=== PATIENT | male | born 1960 | race Caucasian/White ===

== ENCOUNTER 2018-12-15 08:25 | Inpatient (IN) | payer OTHER ==
[2018-12-15] MEDS ORDERED: SODIUM CHLORIDE 0.9% 500 ML 500 ML IV STA (08:42)
[2018-12-15 08:45] LABS: Glucose,Whole Blood 94 mg/dL (75-99)
--- NOTE | 2018-12-15 08:51 | ED ---
Neuro HPI - General Chief Complaint: Neuro Symptoms/Deficit Stated Complaint: Slurred Speech, numbness Time Seen by Provider: 12/15/18 08:35 Source: patient, family, RN notes reviewed Mode of arrival: ambulatory Limitations: no limitations - History of Present Illness Is the patient presenting with stroke symptoms?: Yes Onset/Timin -: hour(s) Initial Comments: This a 58-year-old male presents emergency Department chief complaint of slurred speech, coordination. Patient states that he did not feel well on Tuesday states that he woke up states that he is dizzy no stiff some slurred speech. Patient states he felt there was just related to nasal congestion and states that he took some decongestant. Patient states that he's had symptoms similar to this in the past but he usually resolves after 24 hours. Patient states that he woke up again today still did not feel well states that he noticed when his brushing his teeth that he just felt that his hand eye correlation was not as good as usual. He states he feels symptoms in both upper extremities. Patient states he had some numbness but does not complain of symptoms at this time. He has no complaints of headache, blurred vision. Patient does not have a PCP and regular basis denies taking any prescription medications. Patient denies history of smoking. does state that his speech was off and stated this sounds more slurred. She has not other symptoms.Symptoms have started over 24 hours ago. - Related Data Home Medications: Home Medications Medication Instructions Recorded Confirmed Cetirizine HCl/Pseudoephedrine 1 tab PO Q12H PRN 12/15/18 12/15/18 [Zyrtec-D Tablet] Allergies/Adverse Reactions: Allergies Allergy/AdvReac Type Severity Reaction Status Date / Time No Known Allergies Allergy Verified 12/15/18 09:56 Review of Systems ROS Statement: Those systems with pertinent positive or pertinent negative responses have been documented in the HPI. ROS Other: All systems not noted in ROS Statement are negative. General Exam Limitations: no limitations General appearance: alert, in no apparent distress Head exam: Present: atraumatic, normocephalic, normal inspection Eye exam: Present: normal appearance, PERRL, EOMI. Absent: scleral icterus, conjunctival injection, periorbital swelling ENT exam: Present: normal exam, normal oropharynx, mucous membranes moist, TM's normal bilaterally, normal external ear exam Neck exam: Present: normal inspection, full ROM. Absent: tenderness, meningismus, lymphadenopathy Respiratory exam: Present: normal lung sounds bilaterally. Absent: respiratory distress, wheezes, rales, rhonchi, stridor Cardiovascular Exam: Present: regular rate, normal rhythm, normal heart sounds. Absent: systolic murmur, diastolic murmur, rubs, gallop, clicks GI/Abdominal exam: Present: soft, normal bowel sounds. Absent: distended, tenderness, guarding, rebound, rigid Extremities exam: Present: other (Upper and lower extremity strength equal bilaterally 5/5 neurovascular intact) Neurological exam: Present: alert, oriented X3, CN II-XII intact, reflexes normal. Absent: motor sensory deficit Expanded Patient oriented to: Present: person, place, time Speech: Present: fluid speech Cranial nerves: EOM's Intact: Normal, Gag Reflex: Normal, Tongue Deviation: Normal, Nystagmus: Normal, Facial Sensation: Normal Cerebellar function: Finger to Nose: Normal, Heel to Street: Normal, Romberg: Normal Upper motor neuron: Ramone Neglect: Normal Sensory exam: Upper Extremity Light Touch: Normal, Upper Extremity Pin Prick: Normal, UE 2 Point Discrimination: Normal, Lower Extremity Light Touch: Normal Motor strength exam: RUE: 5, LUE: 5, RLE: 5 Eye Response: (4) open spontaneously Motor Response: (6) obeys commands Verbal Response: (5) oriented [place] Total: 15 Skin exam: Present: warm, dry, intact, normal color. Absent: rash Stroke MDM - Lab Data Result diagrams: 12/15/18 08:45 12/15/18 08:45 Lab Results 12/15/18 12/15/18 12/15/18 Range/Units 08:43 08:45 08:45 WBC 5.5 (3.8-10.6) k/uL RBC 5.09 (4.30-5.90) m/uL Hgb 15.6 (13.0-17.5) gm/dL Hct 44.2 (39.0-53.0) % MCV 86.9 (80.0-100.0) fL MCH 30.7 (25.0-35.0) pg MCHC 35.3 (31.0-37.0) g/dL RDW 12.4 (11.5-15.5) % Plt Count 226 (150-450) k/uL Neutrophils % 54 % Lymphocytes % 34 % Monocytes % 7 % Eosinophils % 2 % Basophils % 0 % Neutrophils # 3.0 (1.3-7.7) k/uL Lymphocytes # 1.9 (1.0-4.8) k/uL Monocytes # 0.4 (0-1.0) k/uL Eosinophils # 0.1 (0-0.7) k/uL Basophils # 0.0 (0-0.2) k/uL PT (9.0-12.0) sec INR (<1.2) APTT (22.0-30.0) sec Sodium 141 (137-145) mmol/L Potassium 3.8 (3.5-5.1) mmol/L Chloride 105 (98-107) mmol/L Carbon Dioxide 28 (22-30) mmol/L Anion Gap 8 mmol/L BUN 15 (9-20) mg/dL Creatinine 0.89 (0.66-1.25) mg/dL Est GFR (CKD-EPI)AfAm >90 (>60 ml/min/1.73 sqM) Est GFR (CKD-EPI)NonAf >90 (>60 ml/min/1.73 sqM) Glucose 87 (74-99) mg/dL POC Glucose (mg/dL) 94 (75-99) mg/dL POC Glu Sound Editor ID Soy Man Calcium 9.6 (8.4-10.2) mg/dL Total Bilirubin 1.0 (0.2-1.3) mg/dL AST 22 (17-59) U/L ALT 28 (21-72) U/L Alkaline Phosphatase 64 (38-126) U/L Troponin I (0.000-0.034) ng/mL Total Protein 7.0 (6.3-8.2) g/dL Albumin 4.3 (3.5-5.0) g/dL 12/15/18 12/15/18 Range/Units 08:45 08:45 WBC (3.8-10.6) k/uL RBC (4.30-5.90) m/uL Hgb (13.0-17.5) gm/dL Hct (39.0-53.0) % MCV (80.0-100.0) fL MCH (25.0-35.0) pg MCHC (31.0-37.0) g/dL RDW (11.5-15.5) % Plt Count (150-450) k/uL Neutrophils % % Lymphocytes % % Monocytes % % Eosinophils % % Basophils % % Neutrophils # (1.3-7.7) k/uL Lymphocytes # (1.0-4.8) k/uL Monocytes # (0-1.0) k/uL Eosinophils # (0-0.7) k/uL Basophils # (0-0.2) k/uL PT 10.2 (9.0-12.0) sec INR 0.9 (<1.2) APTT 25.2 (22.0-30.0) sec Sodium (137-145) mmol/L Potassium (3.5-5.1) mmol/L Chloride (98-107) mmol/L Carbon Dioxide (22-30) mmol/L Anion Gap mmol/L BUN (9-20) mg/dL Creatinine (0.66-1.25) mg/dL Est GFR (CKD-EPI)AfAm (>60 ml/min/1.73 sqM) Est GFR (CKD-EPI)NonAf (>60 ml/min/1.73 sqM) Glucose (74-99) mg/dL POC Glucose (mg/dL) (75-99) mg/dL POC Glu Sound Editor ID Calcium (8.4-10.2) mg/dL Total Bilirubin (0.2-1.3) mg/dL AST (17-59) U/L ALT (21-72) U/L Alkaline Phosphatase (38-126) U/L Troponin I <0.012 (0.000-0.034) ng/mL Total Protein (6.3-8.2) g/dL Albumin (3.5-5.0) g/dL - Medical Decision Making CT shows evidence of intermediate left basilar ganglia infarct. Patient does have some right-sided symptoms. Patient case discussed with admitting physician and will be consulted neurology, MRI. - EKG Data -: EKG Interpreted by Me 12/15/18 10:13 EKG performed at 8:40, no sinus rhythm rate of 75 CO 170 QS 102 QT status QTC 3 successful 31 normal axis normal intervals, no ST elevation or depression. Past Medical History Past Medical History: No Reported History History of Any Multi-Drug Resistant Organisms: None Reported Past Surgical History: Appendectomy Additional Past Surgical History / Comment(s): as child Past Anesthesia/Blood Transfusion Reactions: No Reported Reaction, Motion Sickness Additional Past Anesthesia/Blood Transfusion Reaction / Comment(s): adopted Past Psychological History: No Psychological Hx Reported Smoking Status: Never smoker Past Alcohol Use History: Occasional Past Drug Use History: None Reported - Past Family History Mother Family Medical History: Unable to Obtain Additional Family Medical History / Comment(s): adopted Course Vital Signs 12/15/18 08:27 Temperature 97.8 F Pulse Rate 83 Respiratory 16 Rate Blood Pressure 121/92 O2 Sat by Pulse 98 Oximetry Disposition Clinical Impression: Cerebrovascular accident (CVA) Disposition: ADMITTED IP TO THIS HOSP Condition: Fair Referrals: Richard Glover DO [Primary Care Provider] - 1-2 days
[2018-12-15 09:08] LABS: ALT 28 U/L (21-72); AST 22 U/L (17-59); African American GFR (CKD) >90 (>60 ml/min/1.73 sqM); Albumin 4.3 g/dL (3.5-5.0); Alkaline Phosphatase 64 U/L (38-126); Anion Gap 8 mmol/L; Basophils % (A) 0 %; Blood Urea Nitrogen 15 mg/dL (9-20); Calcium 9.6 mg/dL (8.4-10.2); Carbon Dioxide 28 mmol/L (22-30); Chloride 105 mmol/L (98-107); Eosinophils # (A) 0.1 k/uL (0-0.7); Eosinophils % (A) 2 %; Glucose 87 mg/dL (74-99); HCT 44.2 % (39.0-53.0); HGB 15.6 gm/dL (13.0-17.5); Lymphocytes # (A) 1.9 k/uL (1.0-4.8); Lymphocytes % (A) 34 %; MCH 30.7 pg (25.0-35.0); MCHC 35.3 g/dL (31.0-37.0); MCV 86.9 fL (80.0-100.0); Mean Platelet Volume 5.8; Monocytes # (A) 0.4 k/uL (0-1.0); Monocytes % (A) 7 %; Neutrophils % (A) 54 %; Platelet Count 226 k/uL (150-450); Potassium 3.8 mmol/L (3.5-5.1); RBC 5.09 m/uL (4.30-5.90); RDW 12.4 % (11.5-15.5); Sodium 141 mmol/L (137-145); WBC 5.5 k/uL (3.8-10.6)
[2018-12-15 09:09] LABS: INR 0.9 (<1.2); Partial Thromboplastin Time 25.2 sec (22.0-30.0); Prothrombin Time 10.2 sec (9.0-12.0)
--- NOTE | 2018-12-15 10:06 | CT ---
EXAMINATION TYPE: CT brain wo con DATE OF EXAM: 12/15/2018 COMPARISON: None INDICATION: Slurred speech DLP: 1090.8 mGycm, Automated exposure control for dose reduction was used. CONTRAST: None CT of the brain is performed utilizing 3 mm thick sections through the posterior fossa and 3 mm thick sections through the remaining calvarium. Study is performed within 24 hours of arrival to the hosp ital. No abnormal hyperdensity is present to suggest an acute intracranial hemorrhage. No mass lesion is evident. No acute infarcts are evident. There are patchy periventricular white matter hypodensities, likely on the basis of chronic white matter ischemic change. Lacunar infarct within the left basal ganglion ma y be present. This could be some additional microvascular ischemic change which could be chronic. Ventricles and sulci are appropriate for the patient age. Paranasal sinuses and mastoid air cells within the [id number] are clear. IMPRESSIONS: 1. Patchy periventricular white matter hypodensity, likely on the basis of chronic white matter isc hemic changes. 2. Coronary infarct within the left basal ganglion is not excluded. This could be chronic or indeterm inant age.
--- NOTE | 2018-12-15 10:13 | CT ---
EXAMINATION TYPE: CT angio head neck DATE OF EXAM: 12/15/2018 HISTORY: Slurred speech COMPARISON: None CT DLP: 495.1 mGycm. Automated Exposure Control for Dose Reduction was Utilized. TECHNIQUE: CTA scan of the neck is performed with IV Contrast, patient injected with 65 mL of Isovue 370, axial images are obtained, coronal and sagittal reformatted images are reviewed. Three-D recons tructed images are created on an independent workstation and reviewed. Source images are reviewed. FINDINGS: Carotid/Vascular Structures: There is some beam hardening artifact at the thoracic inlet. The visuali zed common carotid arteries appear symmetrical. Vertebral arteries are codominant. Carotid artery bif urcations appear normal. Internal carotid arteries extend to the skull base. Cervical of [place]: Vertebral basilar system appears normal. Posterior cerebral vasculature is unrema rkable. Left internal carotid artery via patent A1 and M1 segments. A2 segments are normal. The anter ior communicating artery is patent. 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 Left Post erior communicating artery is patent. Right posterior communicating artery is patent. IMPRESSION: 1. No flow-limiting stenosis bilateral carotid bifurcations. 2. Congenital absence right A1 segment. [place] appears within normal limits.
--- NOTE | 2018-12-15 10:14 | XR ---
EXAMINATION TYPE: XR chest 2V DATE OF EXAM: 12/15/2018 COMPARISON: NONE TECHNIQUE: PA and lateral views submitted. HISTORY: Altered mental status FINDINGS: The lungs are clear and there is no pneumothorax, pleural effusion, or focal pneumonia. Hyperinflat ion noted. No overt failure. IMPRESSION: 1. No acute process.
[2018-12-15] MEDS ORDERED: ASPIRIN 325 MG TAB PO STA (10:34)
--- NOTE | 2018-12-15 12:25 | P.CNNES ---
History of Present Illness Consult date: 12/15/18 Reason for Consult: Concern for stroke Chief complaint: Slurred speech and hand incoordination History of Present Illness: hisHISTORY OF PRESENT ILLNESS: Thank you for allowing me to evaluate Mr. Cedrick Becker. Mr. Becker is a 58 year-old R-handed man with PMHx of sinus disease only who presents with acute onset slurred speech along with difficulties with hand coordination. Patient states that yesterday morning, he woke off and packed lunch for work, but patient decided to stay home because he was not feeling well. This morning, when he still has a slurred speech, he decided to come to the hospital. Patient states that when he tried to brush his teeth, and just didn't feel right and for that reason, patient thinks that he was having some coordination issues. Patient states that he has never had similar symptoms before. He sometimes has dizziness that goes away after taking Zyrtec, and his previous doctors have told him that maybe he has vertigo. Patient has a separate episodes maybe once a year during seasonal changes. Patient denies any recent sickness, fever, headache, double/blurry vision, weakness, numbness or tingling. PAST MEDICAL HISTORY: Sinus disease PAST SURGICAL HISTORY: Appendectomy HOME MEDICATIONS: Zyrtec ALLERGIES: NKDA SOCIAL HISTORY: Never smoker, Denies any EtOH/drug abuse history. Works as an electrician chief FAMILY HISTORY: Patient is adopted REVIEW OF SYSTEMS: The 14 systems are reviewed and no additional points are identified compared to the review of systems documented history and physical PHYSICAL EXAMINATION: VITAL SIGNS: T 97.8 HR 83 RR 18 BP 121/92 O2 sat 98% GEN.: NAD, pleasant and cooperative HEENT: NCAT, sclera without icterus NECK: Supple SKIN AND EXTREMITIES: Warm to touch, no edema NEURO: MENTAL STATUS: Patient alert and oriented to self, place, time. Able to name the current president. Speech fluent but with mild dysarthria, able to name and repeat, following all commands readily. No right and left disorientation, neglect. CRANIAL NERVES II THROUGH XII: II: Pupils are equal and reactive to light symmetrically. No afferent pupillary defect. Visual gibson are intact. III, IV, : No ptosis. Extraocular movements full. No nystagmus. V: Facial sensation intact from V1-3. VII. No clear facial asymmetry. VIII: Hearing intact to finger rub bilaterally. IX, X: Symmetric palate elevation. XI: Shoulder shrug intact. XII: Tongue midline without fasciculation or atrophy. MOTOR: Normal bulk/tone. No pronator drift or tremor. Strength is 5/5 throughout all 4 extremities. SENSORY: Intact to light touch in all 4 extremities. Romberg is negative. REFLEXES: 2+ throughout. Toes are downgoing. No clonus. Caren's is absent COORDINATION: Finger to nose and heel to [place] intact. No dysmetria. Rapid alternating movements with okay speed and accuracy. GAIT: Narrow-based and stable. Able to toe/heel/tandem walk DIAGNOSTIC TESTING: LABORATORY: WBC 5.5 hemoglobin 15.6 platelet 226 PT 10.2 INR 0.9 sodium 141 potassium 3.8 chloride 105 bicarb 28 BUN 15. In 0.89 glucose 87 AST 22 ALT 28 alk phos 64 troponin <0.012 IMAGING: CT head without contrast 12/15/2018: Patchy periventricular white matter hypodensity, likely on the basis of chronic white matter ischemic changes. Infarct within the left basal ganglia is not excluded. This could be chronic or indeterminate age CTA head and neck with contrast 12/15/2018: No flow-limiting stenosis bilateral carotid bifurcations. Congenital absence of right A1 segment. [place] appears within normal limits ASSESSMENT: 58 year-old R-handed man with PMHx of sinus disease only who presents with acute onset slurred speech along with difficulties with hand coordination. On exam, patient with mild slurred speech along with L nasolabial fold flattening. Patient at this time with no risk factors for stroke. CT Head showing diffuse chronic white matter ischemic changes with possibility of old L basal ganglia stroke. Recommend stroke work-up and management. RECOMMENDATIONS: 1. MRI brain without contrast 2. Transthoracic echocardiogram. Will consider [place] if TTE unremarkable 3. Cardiac monitoring 4. Permissive HTN for 24 hours SBP >220. Give labetalol 10mg IV q1h PRN for SBP >220 DBP >110 5. ASA 81mg qday and Plavix 75mg qday (dual antiplatelet therapy for 3 weeks per POINT trial, then Aspirin 81mg qday only) 6. Atorvastatin 80mg qhs 7. Labs: A1C, TSH, FLP 8. PT/OT/ST per protocol 9. Discussed with patient about stroke prevention guidelines. Medication compliance, hypertension/diabetes control, lifestyle changes including no sm oking, drinking in moderation, losing weight, exercising, eating healthier 10. Neurology is not available over the weekend in-house. However, feel free to Perfect[employer] message me over the weekend if you have any questions or concerns 11. Patient needs to follow up with neurologist as outpatient with her 1-2 weeks of discharge Past Medical History Past Medical History: Osteoarthritis (OA) Additional Past Medical History / Comment(s): Patient states in the past few months, he has had episodes of vertigo/nausea and possible slight slurring of speech once before, arthritis bilateral knees, sinus issues. History of Any Multi-Drug Resistant Organisms: None Reported Past Surgical History: Tonsillectomy Additional Past Surgical History / Comment(s): Colonoscopy-normal Past Anesthesia/Blood Transfusion Reactions: No Reported Reaction, Motion Sickness Additional Past Anesthesia/Blood Transfusion Reaction / Comment(s): adopted Smoking Status: Never smoker - Past Family History Mother Family Medical History: Unable to Obtain Additional Family Medical History / Comment(s): adopted Father Family Medical History: Unable to Obtain Additional Family Medical History / Comment(s): adopted Medications and Allergies Home Medications Medication Instructions Recorded Confirmed Type Cetirizine HCl/Pseudoephedrine 1 tab PO Q12H PRN 12/15/18 12/15/18 History [Zyrtec-D Tablet] Allergies Allergy/AdvReac Type Severity Reaction Status Date / Time No Known Allergies Allergy Verified 12/15/18 09:56 Physical Examination - Vital Signs Vital Signs: Vital Signs Temp Pulse Resp BP Pulse Ox 12/15/18 10:30 72 14 123/85 94 L 12/15/18 10:00 70 15 112/87 95 12/15/18 09:30 78 22 116/84 94 L 12/15/18 09:00 126/90 12/15/18 08:39 81 17 97 12/15/18 08:27 97.8 F 83 16 121/92 98 Intake and Output 12/14/18 12/15/18 12/15/18 22:59 06:59 14:59 Other: Weight 92.986 kg Results - Laboratory Findings CBC and BMP: 12/15/18 08:45 12/15/18 08:45
--- NOTE | 2018-12-15 15:10 | MR ---
EXAMINATION TYPE: MR brain wo con DATE OF EXAM: 12/15/2018 COMPARISON: CT brain 12/15/2018 HISTORY: Slurred speech, jm arm weakness CONTRAST: Performed utilizing 0 mL intravenous Gadavist gadolinium contrast. TECHNIQUE: Multiplanar, multiecho imaging on a 3.0 Laura magnet is performed through the brain. Stud y is performed within 24 hours of arrival to the hospital. The craniovertebral junction is normal. The pituitary is normal. Diffusion-weighted imaging is performed. There is a solitary small focal hyperintensity within the m edial aspect right brain stem just posterior to the intrapeduncular cistern. Series 305 image 96. No additional abnormal signal areas are evident on diffusion weighted imaging including the left basa l ganglia. There is fairly extensive periventricular white matter changes which are likely chronic is chemic changes. Scattered small subcortical white matter changes are evident. Normal vascular flow voids are within the visualized intracranial cerebral vasculature. On these imag es a very small hypoplastic right A1 segment may be present. Ventricles and sulci are mildly prominent compatible with some age-related atrophy. IMPRESSIONS: 1. Small acute medial right brain stem ischemic change. 2. Fairly extensive chronic appearing white matter and subcortical white matter ischemic type changes . 3. Mild age related atrophy
--- NOTE | 2018-12-15 16:28 | P.HPIM ---
History of Present Illness H&P Date: 12/15/18 Chief Complaint: Slurred Speech, numbness 58-year-old male presents emergency Department chief complaint of slurred speech, coordination. Patient states that he did not feel well on Tuesday states that he woke up states that he is dizzy no stiff some slurred speech. Patient states he felt there was just related to nasal congestion and states that he took some decongestant. Patient states that he's had symptoms similar to this in the past but he usually resolves after 24 hours. Patient states that he woke up again today still did not feel well states that he noticed when his brushing his teeth that he just felt that his hand eye correlation was not as good as usual. He states he feels symptoms in both upper extremities. Patient states he had some numbness but does not complain of symptoms at this time. He has no complaints of headache, blurred vision. Patient does not have a PCP and regular basis denies taking any prescription medications. Patient denies history of smoking. does state that his speech was off and stated this sounds more slurred. She has not other symptoms.Symptoms have started over 24 hours ago. Review of Systems REVIEW OF SYSTEMS: CONSTITUTIONAL: No fever, no malaise, no fatigue. HEENT: No recent visual problems or hearing problems. Denied any sore throat. CARDIOVASCULAR: No chest pain, orthopnea, PND, no palpitations, no syncope. PULMONARY: No shortness of breath, no cough, no hemoptysis. GASTROINTESTINAL: No diarrhea, no nausea, no vomiting, no abdominal pain. NEUROLOGICAL: No headaches, no weakness, no numbness. HEMATOLOGICAL: Denies any bleeding or petechiae. GENITOURINARY: Denies any burning micturition, frequency, or urgency. MUSCULOSKELETAL/RHEUMATOLOGICAL: Denies any joint pain, swelling, or any muscle pain. ENDOCRINE: Denies any polyuria or polydipsia. The rest of the 14-point review of systems is negative. Past Medical History Past Medical History: Osteoarthritis (OA) Additional Past Medical History / Comment(s): Patient states in the past few months, he has had episodes of vertigo/nausea and possible slight slurring of sp eech once before, arthritis bilateral knees, sinus issues. History of Any Multi-Drug Resistant Organisms: None Reported Past Surgical History: Tonsillectomy Additional Past Surgical History / Comment(s): Colonoscopy-normal Past Anesthesia/Blood Transfusion Reactions: No Reported Reaction, Motion Sic kness Additional Past Anesthesia/Blood Transfusion Reaction / Comment(s): adopted Smoking Status: Never smoker - Past Family History Mother Family Medical History: Unable to Obtain Additional Family Medical History / Comment(s): adopted Father Family Medical History: Unable to Obtain Additional Family Medical History / Comment(s): adopted Medications and Allergies Home Medications Medication Instructions Recorded Confirmed Type Cetirizine HCl/Pseudoephedrine 1 tab PO Q12H PRN 12/15/18 12/15/18 History [Zyrtec-D Tablet] Allergies Allergy/AdvReac Type Severity Reaction Status Date / Time No Known Allergies Allergy Verified 12/15/18 09:56 Physical Exam Vitals: Vital Signs Temp Pulse Resp BP Pulse Ox 12/15/18 12:00 135/100 12/15/18 11:30 74 10 L 113/89 95 12/15/18 11:00 71 16 119/85 97 12/15/18 10:30 72 14 123/85 94 L 12/15/18 10:00 70 15 112/87 95 12/15/18 09:30 78 22 116/84 94 L 12/15/18 09:00 126/90 12/15/18 08:39 81 17 97 12/15/18 08:27 97.8 F 83 16 121/92 98 Intake and Output 12/14/18 12/15/18 12/15/18 22:59 06:59 14:59 Other: Weight 92.986 kg General appearance: alert, in no apparent distress Head exam: Present: atraumatic, normocephalic, normal inspection Eye exam: Present: normal appearance, PERRL, EOMI. Absent: scleral icterus, conjunctival injection, periorbital swelling ENT exam: Present: normal exam, normal oropharynx, mucous membranes moist, TM's normal bilaterally, normal external ear exam Neck exam: Present: normal inspection, full ROM. Absent: tenderness, meningismus, lymphadenopathy Respiratory exam: Present: normal lung sounds bilaterally. Absent: respiratory distress, wheezes, rales, rhonchi, stridor Cardiovascular Exam: Present: regular rate, normal rhythm, normal heart sounds. Absent: systolic murmur, diastolic murmur, rubs, gallop, clicks GI/Abdominal exam: Present: soft, normal bowel sounds. Absent: distended, tenderness, guarding, rebound, rigid Extremities exam: Present: other (Upper and lower extremity strength equal bilaterally 5/5 neurovascular intact) Neurological exam: Present: alert, oriented X3, CN II-XII intact, reflexes normal. Absent: motor sensory deficit Expanded Patient oriented to: Present: person, place, time Speech: Present: fluid speech Cranial nerves: EOM's Intact: Normal, Gag Reflex: Normal, Tongue Deviation: Normal, Nystagmus: Normal, Facial Sensation: Normal Sensory exam: Upper Extremity Light Touch: Normal, Upper Extremity Pin Prick: Normal, UE 2 Point Discrimination: Normal, Lower Extremity Light Touch: Normal Davin Total: 15 Skin exam: Present: warm, dry, intact, normal color. Absent: rash Results CBC & Chem 7: 12/15/18 08:45 12/15/18 08:45 Thrombosis Risk Factor Assmnt - Choose All That Apply Any of the Below Risk Factors Present?: Yes Each Factor Represents 1 point: Age 41-60 years, Obesity (BMI >25) Other Risk Factors: Yes Other congenital or acquired thrombophilia - If yes, enter type in comment: No Each Risk Factor Represents 5 Points: Stroke (< 1 month) Thrombosis Risk Factor Assessment Total Risk Factor Score: 7 Thrombosis Risk Factor Assessment Level: High Risk Assessment and Plan Assessment: 1. Acute onset slurred speech/difficulty with hand coordination - Patient does have mild slurring of speech along with left nasal labial for flattening; CT of the head done in ED showed diffuse chronic white matter ischemic changes with possibility of old left basal ganglia infarct; neurology is following and recommending to proceed with MRI of the brain without contrast, transthoracic echo echocardiogram with possibility of proceeding with FLORENCE if transthoracic echo is unremarkable; patient will be placed on telemetry with permissive hypertension for 24 hours keeping SBP greater than 220 and DBP greater than 110; patient will be given labetalol 10 mg IV every hour when necessary - Continue with aspirin 81 mg daily and Plavix 75 mg daily - High intensity statin therapy with or atorvastatin 80 mg daily at bedtime - consult PT/OT/CHILDRENS CLUB ATTENDANT 2. Uncontrolled hypertension; permissive hypertension for next 24-48 hours as indicated above 3. DVT prophylaxis; SCDs CODE STATUS; full code Time with Patient: Greater than 30
[2018-12-15 19:42] LABS: Hemoglobin A1C 5.2 % (4.0-6.0)
--- NOTE | 2018-12-15 19:50 | ECHOF ---
Referral Reason:Concern for stroke MEASUREMENTS -------- HEIGHT: 185.4 cm WEIGHT: 93.0 kg BP: 135/100 RVIDd: 2.8 cm (< 3.3) IVSd: 1.0 cm (0.6 - 1.1) LVIDd: 3.7 cm (3.9 - 5.3) LVPWd: 1.0 cm (0.6 - 1.1) IVSs: 1.4 cm LVIDs: 2.6 cm LVPWs: 1.5 cm LA Diam: 3.0 cm (2.7 - 3.8) LAESV Index (A-L): 20.22 ml/m Ao Diam: 4.4 cm (2.0 - 3.7) AV Cusp: 2.5 cm (1.5 - 2.6) MV EXCURSION: 21.432 mm (> 18.000) MV EF SLOPE: 102 mm/s (70 - 150) EPSS: 0.5 cm MV E Duy: 0.47 m/s MV DecT: 285 ms MV A Duy: 0.55 m/s MV E/A Ratio: 0.85 TAPSE: 21.76 mm FINDINGS -------- Sinus rhythm. This was a technically good study. The left ventricular size is normal. Left ventricular wall thickness is normal. Overall left vent ricular systolic function is normal with, an EF between 60 - 65 %. The diastolic filling pattern is normal for the age of the patient 10.49. The right ventricle is normal in size. Normal LA size by volume 22+/-6 ml/m2. The right atrium is normal in size. Interatrial and interventricular septum intact. The aortic valve is trileaflet and appears structurally normal. There is trace to mild mitral regurgitation. The tricuspid valve appears structurally normal. Trace/mild (physiologic) pulmonic regurgitation. The aortic root is dilated measuring 4.4cm. Normal inferior vena cava with normal inspiratory collapse consistent with estimated right atrial pre ssure of 5 mmHg. There is no pericardial effusion. CONCLUSIONS -------- 1. Sinus rhythm. 2. This was a technically good study. 3. The left ventricular size is normal. 4. Left ventricular wall thickness is normal. 5. Overall left ventricular systolic function is normal with, an EF between 60 - 65 %. 6. The diastolic filling pattern is normal for the age of the patient 10.49 7. The right ventricle is normal in size. 8. Normal LA size by volume 22+/-6 ml/m2. 9. The right atrium is normal in size. 10. Interatrial and interventricular septum intact. 11. The aortic valve is trileaflet and appears structurally normal. 12. There is trace to mild mitral regurgitation. 13. The tricuspid valve appears structurally normal. 14. Trace/mild (physiologic) pulmonic regurgitation. 15. The aortic root is dilated measuring 4.4cm. 16. Normal inferior vena cava with normal inspiratory collapse consistent with estimated right atrial pressure of 5 mmHg. 17. There is no pericardial effusion. PROCESSING MGR: Mana Sharp RDCS
[2018-12-15] MEDS: HEPARIN SODIUM,PORCINE 5,000 UNIT/ML 1 ML VIAL SQ SCH (21:46)
[2018-12-15] MEDS: ATORVASTATIN 40 MG TAB PO SCH (21:46)
[2018-12-16 06:33] LABS: Basophils % (A) 0 %; Eosinophils # (A) 0.1 k/uL (0-0.7); Eosinophils % (A) 2 %; HCT 44.7 % (39.0-53.0); HGB 14.9 gm/dL (13.0-17.5); Lymphocytes % (A) 35 %; MCH 29.3 pg (25.0-35.0); MCHC 33.3 g/dL (31.0-37.0); Mean Platelet Volume 6.6; Monocytes # (A) 0.3 k/uL (0-1.0); Monocytes % (A) 5 %; Neutrophils # (A) 3.2 k/uL (1.3-7.7); Neutrophils % (A) 55 %; Platelet Count 227 k/uL (150-450); RBC 5.08 m/uL (4.30-5.90); RDW 12.7 % (11.5-15.5); WBC 5.8 k/uL (3.8-10.6)
[2018-12-16 06:48] LABS: African American GFR (CKD) >90 (>60 ml/min/1.73 sqM); Anion Gap 7 mmol/L; Blood Urea Nitrogen 18 mg/dL (9-20); Calcium 9.4 mg/dL (8.4-10.2); Carbon Dioxide 26 mmol/L (22-30); Chloride 106 mmol/L (98-107); Cholesterol 175 mg/dL (<200); Glucose 89 mg/dL (74-99); HDL Cholesterol 51 mg/dL (40-60); LDL Cholesterol,Calculated 111 mg/dL (0-99); Potassium 4.1 mmol/L (3.5-5.1); Sodium 139 mmol/L (137-145); Triglycerides 65 mg/dL (<150)
[2018-12-16] MEDS: HEPARIN SODIUM,PORCINE 5,000 UNIT/ML 1 ML VIAL SQ SCH ×2 (09:13→21:25)
[2018-12-16] MEDS: CLOPIDOGREL 75 MG TAB PO SCH (09:13)
--- NOTE | 2018-12-16 10:25 | P.PN ---
Progress Note - Text Progress Note Date: 12/16/18 Brief Note: I did not see the patient today. Reviewed results of TTE, MRI brain and labs. MRI brain showing a lacunar infarct in R emmanuel/brainstem junction, which explains patient's L facial droop. MRI brain also showing significant periventricular white matter changes, which could be chronic microvascular changes. There is no evident risk factor for this patient's finding of a stroke. Recommend FLORENCE during this admission and continuation of cardiac monitoring as outpatient. Neurology is not available over the weekend in-house. However, feel free to [employer] message me over the weekend if you have any questions or concerns
[2018-12-16] MEDS ORDERED: ASPIRIN 325 MG TAB PO SCH (10:35)
--- NOTE | 2018-12-16 13:07 | P.PN ---
Subjective Progress Note Date: 12/16/18 Principal diagnosis: Acute CVA; lacunar infarct right emmanuel/brainstem junction 58-year-old male presents emergency Department chief complaint of slurred speech, coordination. Patient states that he did not feel well on Tuesday states that he woke up states that he is dizzy no stiff some slurred speech. Patient states he felt there was just related to nasal congestion and states that he took some decongestant. Patient states that he's had symptoms similar to this in the past but he usually resolves after 24 hours. Patient states that he woke up again today still did not feel well states that he noticed when his brushing his teeth that he just felt that his hand eye correlation was not as good as usual. He states he feels symptoms in both upper extremities. Patient states he had some numbness but does not complain of symptoms at this time. He has no complaints of headache, blurred vision. Patient does not have a PCP and regular basis denies taking any prescription medications. Patient denies history of smoking. does state that his speech was off and stated this sounds more slurred. 12/16/2018 Patient is seen and evaluated in room with at bedside; patient denies any specific complaints Vital signs remained stable with a temperature of 97.9, pulse 81, estrogen 16 and blood pressure 105/66 with SpO2 of 96% Labs are reviewed with essentially normal CBC and chemical profile, A1c is 5.2 with total cholesterol of 175 and LDL of 111; TSH is 1.75 Patient remains on high-intensity statin therapy along with aspirin and Plavix; MRI is positive for lack noted infarct in the right emmanuel/brainstem junction; neurology is following and is recommending a FLORENCE in effort to find etiology of stroke; this was discussed with patient and and they're agreeable Objective - Vital Signs Vital signs: Vital Signs Temp 97.9 F 12/16/18 04:00 Pulse 81 12/16/18 04:00 Resp 16 12/16/18 04:00 BP 105/66 12/16/18 04:00 Pulse Ox 96 12/16/18 04:00 Intake & Output 12/15/18 12/16/18 12/16/18 18:59 06:59 18:59 Intake Total 240 540 360 Balance 240 540 360 Weight 92.986 kg 92.7 kg Intake: Oral 240 540 360 Other: Voiding Method Toilet # Voids 1 2 - Exam - Constitutional General appearance: Present: average body habitus, cooperative, no acute distress - EENT Eyes: Present: anicteric sclerae, EOMI, PERRLA, normal appearance ENT: Present: hearing grossly normal, normal oropharynx Ears: bilateral: normal - Neck Neck: Present: normal ROM. Absent: lymphadenopathy, rigidity, thyromegaly Carotids: negative: bruit present Thyroid: bilateral: normal size, negative: enlarged, nodule - Respiratory Respiratory: bilateral: CTA, negative: rales, rhonchi, wheezing - Cardiovascular Rhythm: regular Heart sounds: normal: S1, S2 Abnormal Heart Sounds: Absent: systolic murmur, diastolic murmur - Gastrointestinal General gastrointestinal: Present: normal bowel sounds, soft. Absent: distended, organomegaly, tenderness - Genitourinary Genitourinary Comment(s): deferred - Integumentary Integumentary: Present: normal turgor. Absent: jaundiced, rash, ulcer - Neurologic Neurologic: Present: CNII-XII intact. Absent: focal deficits - Musculoskeletal Musculoskeletal: Present: gait normal, strength equal bilaterally - Psychiatric Psychiatric: Present: A&O x's 3, appropriate affect, intact judgment & insight - Labs CBC & Chem 7: 12/16/18 05:48 12/16/18 05:48 Labs: Abnormal Lab Results - Last 24 Hours (Table) 12/16/18 Range/Units 05:48 LDL Cholesterol, Calc 111 H (0-99) mg/dL Assessment and Plan Assessment: 1. Acute onset slurred speech/difficulty with hand coordination - Patient does have mild slurring of speech along with left nasal labial for flattening; CT of the head done in ED showed diffuse chronic white matter ischemic changes with possibility of old left basal ganglia infarct; neurology is following and recommending to proceed with MRI of the brain without contrast, transthoracic echo echocardiogram with possibility of proceeding with FLORENCE if transthoracic echo is unremarkable; patient will be placed on telemetry with permissive hypertension for 24 hours keeping SBP greater than [address] than 110; patient will be given labetalol 10 mg IV every hour when necessary - Continue with aspirin 81 mg daily and Plavix 75 mg daily - High intensity statin therapy with or atorvastatin 80 mg daily at bedtime - consult PT/OT/KITCHEN WORK SUPERVISOR 2. Uncontrolled hypertension; permissive hypertension for next 24-48 hours as indicated above 3. DVT prophylaxis; SCDs CODE STATUS; full code Time with Patient: Greater than 30
[2018-12-16] MEDS: ATORVASTATIN 40 MG TAB PO SCH (21:25)
[2018-12-17 07:26] LABS: Calcium 9.6 mg/dL (8.4-10.2); Potassium 4.3 mmol/L (3.5-5.1)
[2018-12-17] MEDS: HEPARIN SODIUM,PORCINE 5,000 UNIT/ML 1 ML VIAL SQ SCH ×2 (09:14→20:15)
[2018-12-17] MEDS: ASPIRIN 81 MG PO SCH (09:14)
[2018-12-17] MEDS: CLOPIDOGREL 75 MG TAB PO SCH (09:14)
--- NOTE | 2018-12-17 15:57 | P.PN ---
Subjective Progress Note Date: 12/17/18 Principal diagnosis: Acute CVA; lacunar infarct right emmanuel/brainstem junction 58-year-old male presents emergency Department chief complaint of slurred speech, coordination. Patient states that he did not feel well on Tuesday states that he woke up states that he is dizzy no stiff some slurred speech. Patient states he felt there was just related to nasal congestion and states that he took some decongestant. Patient states that he's had symptoms similar to this in the past but he usually resolves after 24 hours. Patient states that he woke up again today still did not feel well states that he noticed when his brushing his teeth that he just felt that his hand eye correlation was not as good as usual. He states he feels symptoms in both upper extremities. Patient states he had some numbness but does not complain of symptoms at this time. He has no complaints of headache, blurred vision. Patient does not have a PCP and regular basis denies taking any prescription medications. Patient denies history of smoking. does state that his speech was off and stated this sounds more slurred. 12/16/2018 Patient is seen and evaluated in room with at bedside; patient denies any specific complaints Vital signs remained stable with a temperature of 97.9, pulse 81, estrogen 16 and blood pressure 105/66 with SpO2 of 96% Labs are reviewed with essentially normal CBC and chemical profile, A1c is 5.2 with total cholesterol of 175 and LDL of 111; TSH is 1.75 Patient remains on high-intensity statin therapy along with aspirin and Plavix; MRI is positive for lack noted infarct in the right emmanuel/brainstem junction; neurology is following and is recommending a FLORENCE in effort to find etiology of stroke; this was discussed with patient and and they're agreeable 12/17/2018 Patient is seen and evaluated with at bedside; patient and family are concerned about possible need for evaluation of carotids; I did go over results of CTA head and neck which are unremarkable Vital signs with a temperature of 97.6, pulse 83, respiration 14 and blood pressure 113/65 Labs remained stable with sodium of 139, potassium 4.3; BUN has escalated up to 23 with creatinine of 1.16; patient encouraged to increase fluid intake Patient remains on aspirin, Plavix and high-intensity statin therapy in form of Lipitor 40 mg by mouth daily at bedtime; MRI is positive for infarct and right emmanuel/brainstem junction Neurology is following and FLORENCE is recommended; scheduled for tomorrow morning Objective - Vital Signs Vital signs: Vital Signs Temp 97.6 F 12/17/18 08:00 Pulse 83 12/17/18 08:00 Resp 14 12/17/18 08:00 BP 113/65 12/17/18 08:00 Pulse Ox 94 L 12/17/18 08:00 Intake & Output 12/16/18 12/17/18 12/17/18 19:59 06:59 18:59 Intake Total 360 Balance 360 Weight Intake: Oral 360 Other: Voiding Method Toilet # Voids 1 - Exam - Constitutional General appearance: Present: average body habitus, cooperative, no acute distress - EENT Eyes: Present: anicteric sclerae, EOMI, PERRLA, normal appearance ENT: Present: hearing grossly normal, normal oropharynx Ears: bilateral: normal - Neck Neck: Present: normal ROM. Absent: lymphadenopathy, rigidity, thyromegaly Carotids: negative: bruit present Thyroid: bilateral: normal size, negative: enlarged, nodule - Respiratory Respiratory: bilateral: CTA, negative: rales, rhonchi, wheezing - Cardiovascular Rhythm: regular Heart sounds: normal: S1, S2 Abnormal Heart Sounds: Absent: systolic murmur, diastolic murmur - Gastrointestinal General gastrointestinal: Present: normal bowel sounds, soft. Absent: distended, organomegaly, tenderness - Genitourinary Genitourinary Comment(s): deferred - Integumentary Integumentary: Present: normal turgor. Absent: jaundiced, rash, ulcer - Neurologic Neurologic: Present: CNII-XII intact. Absent: focal deficits - Musculoskeletal Musculoskeletal: Present: gait normal, strength equal bilaterally - Psychiatric Psychiatric: Present: A&O x's 3, appropriate affect, intact judgment & insight - Labs CBC & Chem 7: 12/16/18 05:48 12/17/18 06:15 Labs: Abnormal Lab Results - Last 24 Hours (Table) 12/17/18 Range/Units 06:15 BUN 23 H (9-20) mg/dL Assessment and Plan Assessment: 1. Acute onset slurred speech/difficulty with hand coordination - Patient does have mild slurring of speech along with left nasal labial for flattening; CT of the head done in ED showed diffuse chronic white matter [place] changes with possibility of old left basal ganglia infarct; neurology is following and recommending to proceed with MRI of the brain without contrast, transthoracic echo echocardiogram with possibility of proceeding with FLORENCE if transthoracic echo is unremarkable; patient will be placed on telemetry with permissive hypertension for 24 hours keeping SBP greater than 220 and DBP greater than 110; patient will be given labetalol 10 mg IV every hour when necessary - Continue with aspirin 81 mg daily and Plavix 75 mg daily - High intensity statin therapy with or atorvastatin 80 mg daily at bedtime - consult PT/OT/RADAR TECHNICIAN 2. Uncontrolled hypertension; permissive hypertension for next 24-48 hours as indicated above 3. DVT prophylaxis; SCDs CODE STATUS; full code Time with Patient: Greater than 30
[2018-12-17] MEDS: ATORVASTATIN 40 MG TAB PO SCH (20:15)
[2018-12-18 07:01] LABS: Calcium 9.4 mg/dL (8.4-10.2); Potassium 4.4 mmol/L (3.5-5.1)
--- NOTE | 2018-12-18 08:37 | P.PN ---
Subjective This is first time taking care of the patient on 12/18/2018 Is a pleasant 58 years old male with past medical history of osteoarthritis. Patient presents because of acute onset of slurred speech, right facial droop and right hand coordination for example during the portion his teeth. Patient has been evaluated by neurologist, his status is improving. Patient states that his speech is better today, his right hand this coordination is improved by 90%. He is able to with no difficulty. He denies specific weakness or numbness. MRI was suspicious for right brainstem/Rand stroke, neurologist also recommended E, which was unremarkable and followed by FLORENCE which is still pending. Consult cardiology for possible need for FLORENCE No chest pain or dyspnea. Vitas looks stable. Labs from today shows a stable creatinine. Consult PT/OT Objective - Vital Signs Vital signs: Vital Signs Temp 98.2 F 12/18/18 03:54 Pulse 93 12/18/18 03:54 Resp 16 12/18/18 03:54 BP 109/61 12/18/18 03:54 Pulse Ox 98 12/18/18 03:54 Intake & Output 12/17/18 12/18/18 12/18/18 18:59 06:59 18:59 Intake Total 1200 Output Total 800 Balance 400 Weight 92.1 kg Intake: Oral 1200 Output: Urine 800 Other: Voiding Method Toilet Toilet # Voids 1 1 - Exam GENERAL: The patient is alert and oriented x3, not in any acute distress. Well developed, well nourished. HEENT: Pupils are round and equally reacting to light. EOMI. No scleral icterus. No conjunctival pallor. Normocephalic, atraumatic. No pharyngeal erythema. No thyromegaly. CARDIOVASCULAR: S1 and S2 present. No murmurs, rubs, or gallops. PULMONARY: Chest is clear to auscultation, no wheezing or crackles. ABDOMEN: Soft, nontender, nondistended, normoactive bowel sounds. No palpable organomegaly. MUSCULOSKELETAL: No joint swelling or deformity. EXTREMITIES: No cyanosis, clubbing, or pedal edema. -NEUROLOGICAL: Gross neurological examination did not reveal any focal deficits. Cranial nerves are grossly intact. Slightly slurred speech. Strength is 5/5 in all extremities. Sensation is intact in all extremities. Meningeal signs are absent SKIN: No rashes. no petechiae. - Labs CBC & Chem 7: 12/16/18 05:48 12/18/18 06:18 Labs: Abnormal Lab Results - Last 24 Hours (Table) 12/18/18 Range/Units 06:18 BUN 24 H (9-20) mg/dL Assessment and Plan Assessment: -Acute slurred speech/difficulty with right hand coordination. MRI showing right emmanuel thrombosis. Continue with aspirin and Plavix. Cardiology consult for FLORENCE -Essential hypertension, better controlled -DVT prophylaxis: Subcutaneous heparin -GI prophylaxis: Pepcid PT/OT: Pending
[2018-12-18] MEDS: FAMOTIDINE 20 MG/2 ML VIAL IV SCH ×2 (09:13→20:33)
[2018-12-18] MEDS: ASPIRIN 81 MG PO SCH (09:13)
[2018-12-18] MEDS: HEPARIN SODIUM,PORCINE 5,000 UNIT/ML 1 ML VIAL SQ SCH ×2 (09:13→20:33)
[2018-12-18] MEDS: CLOPIDOGREL 75 MG TAB PO SCH (09:13)
--- NOTE | 2018-12-18 09:17 | P.CRDCN ---
History of Present Illness Consult date: 12/18/18 Requesting physician: Luis Caal Reason for Consult (text): Request for FLORENCE Chief complaint: Slurring of speech, History of present illness: This is a pleasant 58-year-old gentleman with no prior documented history of hypertension, no diabetes, no hyperlipidemia, he is unaware of his family history as he was adopted, he is a nonsmoker, denies any EtOH use. Patient presents to the hospital with symptoms of slurring of speech with associated issues with coordination. morning, the patient was getting ready to go to work, generally not feeling well, noticed some slurring of his speech and decided to stay home. The following morning, he continued to have slurring of speech and some issues with coordination, therefore came to the emergency room for further evaluation and treatment. Patient does state that he gets intermittent dizzy episodes, relates that to his sinuses and usually takes Zyrtec for this. CAT scan of the brain was performed on arrival here which showed patchy periventricular white matter hypodensity, likely on the basis of chronic white matter ischemic changes. Coronary infarct within the left basal ganglion not excluded. This could be chronic or indeterminant age. CT angiography did not reveal any flow-limiting stenosis in the carotids. Chest x- ray did not reveal any acute process. EKG showed normal sinus rhythm with nonspecific ST-T wave changes. An echocardiogram with Doppler study was performed which revealed an ejection fraction of 60-65%. Blood pressure 110/60 with a heart rate in the 70s to 90s, 98% on room air. White blood cell count 5.8, hemoglobin 14.9, platelet count 227. Sodium 139, potassium 4.4, BUN 24 and creatinine 1.1. Troponin negative 1. TSH normal, cholesterol 175, LDL 111, HDL 51, triglycerides 65. At the time of my examination this morning, the patient still has mild slurring of speech, cardiology was requested to see the patient to perform a transesophageal echocardiographic study. The procedure itself was explained to the patient as well as its risks and benefits. This will be performed today by Dr. Guzman. Past Medical History Past Medical History: Osteoarthritis (OA) Additional Past Medical History / Comment(s): Patient states in the past few months, he has had episodes of vertigo/nausea and possible slight slurring of speech once before, arthritis bilateral knees, sinus issues. History of Any Multi-Drug Resistant Organisms: None Reported Past Surgical History: Tonsillectomy Additional Past Surgical History / Comment(s): Colonoscopy-normal Past Anesthesia/Blood Transfusion Reactions: No Reported Reaction, Motion Sickness Additional Past Anesthesia/Blood Transfusion Reaction / Comment(s): adopted Smoking Status: Never smoker - Past Family History Mother Family Medical History: Unable to Obtain Additional Family Medical History / Comment(s): adopted Father Family Medical History: Unable to Obtain Additional Family Medical History / Comment(s): adopted Medications and Allergies Home Medications Medication Instructions Recorded Confirmed Type Cetirizine HCl/Pseudoephedrine 1 tab PO Q12H PRN 12/15/18 12/15/18 History [Zyrtec-D Tablet] Allergies Allergy/AdvReac Type Severity Reaction Status Date / Time No Known Allergies Allergy Verified 12/15/18 09:56 Physical Exam Vitals: Vital Signs Temp Pulse Resp BP Pulse Ox 12/18/18 03:54 98.2 F 93 16 109/61 98 12/18/18 00:00 97.9 F 77 16 111/66 97 12/17/18 20:15 98 F 91 14 118/71 95 12/17/18 16:00 97.5 F L 82 16 119/89 95 12/17/18 12:00 97 16 144/75 97 Intake and Output 12/17/18 12/18/18 12/18/18 22:59 06:59 14:59 Intake Total 480 Output Total 800 Balance -320 Intake: Oral 480 Output: Urine 800 Other: Voiding Method Toilet Toilet # Voids 1 Weight 92.1 kg PHYSICAL EXAMINATION: GENERAL: 58-year-old gentleman in no acute distress at the time of my exam HEENT: Head is atraumatic, normocephalic. Pupils equal, round. Sclera anicteric. Conjunctiva are clear. Mucous membranes of the mouth are moist. Neck is supple. There is no elevated jugular venous pressure. No carotid bruit is heard. HEART EXAMINATION: Heart S1, S2 normal. No murmur or gallop heard. CHEST EXAMINATION: Lungs are clear to auscultation and precussion. No chest wall tenderness is noted on palpation or with deep breathing. ABDOMEN: Soft, nontender. Bowel sounds are heard. No organomegaly noted. EXTREMITIES: 2+ peripheral pulses with no evidence of peripheral edema and no calf tenderness noted. NEUROLOGIC patient is awake, alert and oriented 3, mild slurring of speech, mild left-sided facial droop . Results 12/16/18 05:48 12/18/18 06:18 Comprehensive Metabolic Panel 12/18/18 Range/Units 06:18 Sodium 139 (137-145) mmol/L Potassium 4.4 (3.5-5.1) mmol/L Chloride 103 (98-107) mmol/L Carbon Dioxide 28 (22-30) mmol/L BUN 24 H (9-20) mg/dL Creatinine 1.14 (0.66-1.25) mg/dL Glucose 89 (74-99) mg/dL Calcium 9.4 (8.4-10.2) mg/dL Current Medications Generic Name Dose Route Start Last Admin Trade Name Freq PRN Reason Stop Dose Admin Aspirin 81 mg 12/17/18 09:00 12/17/18 09:14 Aspirin PO 81 mg DAILY KRISTY Administration Atorvastatin Calcium 40 mg 12/15/18 21:00 12/17/18 20:15 Lipitor PO 40 mg HS KRISTY Administration Clopidogrel Bisulfate 75 mg 12/16/18 09:00 12/17/18 09:14 Plavix PO 75 mg DAILY KRISTY Administration Famotidine 20 mg 12/18/18 09:00 Pepcid IV Q12HR KRISTY Heparin Sodium (Porcine) 5,000 unit 12/18/18 09:00 Heparin SQ Q12HR KRISTY Intake and Output 12/17/18 12/18/18 12/18/18 22:59 06:59 14:59 Intake Total 480 Output Total 800 Balance -320 Intake: Oral 480 Output: Urine 800 Other: Voiding Method Toilet Toilet # Voids 1 Weight 92.1 kg 12/16/18 05:48 12/18/18 06:18 EKG Interpretations (text) EKG shows normal sinus rhythm with nonspecific ST-T wave changes Assessment and Plan Plan: Assessment and plan #1 slurring of speech with some coordination issues, MRI of the brain shows lacunar infarct in the right emmanuel/brainstem junction, also showing significant. Ventricular white matter changes. Plan Patient has been advised to undergo transesophageal echocardiographic study. The risks and the benefits of the procedure were explained to the patient in detail and he is willing to proceed. This will be performed today by Dr. Guzman. DNP note has been reviewed, I agree with a documented findings and plan of care. Patient was seen and examined.
[2018-12-18] MEDS ORDERED: fentaNYL (PF) 50 MCG/ML 2 ML AMP ONE (11:06)
[2018-12-18] MEDS ORDERED: SODIUM CHLORIDE 0.9% 500 ML 500 ML IV ONE (11:18)
[2018-12-18] MEDS: MIDAZOLAM 2 MG/2 ML VIAL IVP ONE ×2 (11:26→11:39)
[2018-12-18] MEDS ORDERED: fentaNYL (PF) 50 MCG/ML 2 ML AMP IVP ONE (11:26)
[2018-12-18] MEDS: BENZOCAINE SPRAY 1 CAN MUCOUS MEM ONE ×2 (11:38→11:39)
--- NOTE | 2018-12-18 12:54 | P.PN ---
Progress Note - Text Progress Note Date: 12/18/18 SUBJECTIVE/INTERVAL EVENTS: No acute overnight events. No new symptoms of weakness, numbness or tingling. Denies headache, nausea, vomiting, double/blurry vision, slurryed speech, aphasia. PHYSICAL EXAMINATION: VITAL SIGNS: T 98.2 HR 93 RR 16 BP 106/61 O2 sat 98% on RA GEN.: NAD, pleasant and cooperative HEENT: NCAT, sclera without icterus NECK: Supple SKIN AND EXTREMITIES: Warm to touch, no edema NEURO: MENTAL STATUS: Patient alert and oriented to self, place, time. Able to name the current president. Speech fluent but with mild dysarthria, able to name and repeat, following all commands readily. No right and left disorientation, neglect. CRANIAL NERVES II THROUGH XII: II: Pupils are equal and reactive to light symmetrically. No afferent pupillary defect. Visual gibson are intact. III, IV, : No ptosis. Extraocular movements full. No nystagmus. V: Facial sensation intact from V1-3. VII. No clear facial asymmetry. VIII: Hearing intact to finger rub bilaterally. IX, X: Symmetric palate elevation. XI: Shoulder shrug intact. XII: Tongue midline without fasciculation or atrophy. MOTOR: Normal bulk/tone. No pronator drift or tremor. Strength is 5/5 throughout all 4 extremities. SENSORY: Intact to light touch in all 4 extremities. Romberg is negative. REFLEXES: 2+ throughout. Toes are downgoing. No clonus. Caren's is absent COORDINATION: Finger to nose and heel to contreras intact. No dysmetria. Rapid alternating movements with okay speed and accuracy. GAIT: Narrow-based and stable. Able to toe/heel/tandem walk DIAGNOSTIC TESTING: LABORATORY: WBC 5.5 hemoglobin 15.6 platelet 226 PT 10.2 INR 0.9 sodium 141 potassium 3.8 chloride 105 bicarb 28 BUN 15. In 0.89 glucose 87 AST 22 ALT 28 alk phos 64 troponin <0.012 Total Cholesterol 175 LDL 111 HDL 51 TG 65 TSH 1.750 IMAGING: MRI brain w/o contrast 12/15/18: Acute lacunar stroke in R emmanuel-midbrain territory CT head without contrast 12/15/2018: Patchy periventricular white matter hypodensity, likely on the basis of chronic white matter ischemic changes. Infarct within the left basal ganglia is not excluded. This could be chronic or indeterminate age CTA head and neck with contrast 12/15/2018: No flow-limiting stenosis bilateral carotid bifurcations. Congenital absence of right A1 segment. [place] appears within normal limits ASSESSMENT: 58 year-old R-handed man with PMHx of sinus disease only who presents with acute onset slurred speech along with difficulties with hand coordination. On exam, patient with mild slurred speech along with L nasolabial fold flattening. Patient at this time with no risk factors for stroke. CT Head showing diffuse chronic white matter ischemic changes with possibility of old L basal ganglia stroke. Recommend stroke work-up and management. MRI brain w/o contrast showing acute R emmanuel-medullary territory lacunar infarct. Patient with no risk factors. Patient with no hx of smoking or drug abuse. Patient with no history of blood clots (although patient was adopted and there's no known family history). TTE unremarkable. Underwent FLORENCE today. RECOMMENDATIONS: 1. Pending FLORENCE results 2. Cardiac monitoring: No obvious atrial arrhythmia observed. Patient needs to be on long-term cardiac monitoring with either Holter or loop recorder 3. ASA 81mg qday and Plavix 75mg qday (dual antiplatelet therapy for 3 weeks per POINT trial, then Aspirin 81mg qday only) 4. Atorvastatin 40mg qhs 5. Discussed with patient about further work-up needed as outpatient for stroke and stroke prevention guidelines. Medication compliance, hypertension/diabetes control, lifestyle changes including no smoking, drinking in moderation, losing weight, exercising, eating healthier 6. Neurology will sign off at this time. Please feel free to contact Neurology again if with additional questions or concerns. 7. Patient needs to follow up with neurologist as outpatient with her 1-2 weeks of discharge. Can be considered for hypercoagulability work-up although patient is 58 years old with no history of blood clot
--- NOTE | 2018-12-18 14:42 | ECHOT ---
TRANSESOPHAGEAL ECHOCARDIOGRAM PERFORMING PHYSICIAN: PROCEDURE PERFORMED: FLORENCE INDICATIONS: CVA. LEVEL OF SEDATION: PROCEDURE DESCRIPTION: After obtaining informed consent, transesophageal echocardiogram is performed in left lateral position using an Omni plane probe. Local and IV sedation were obtained using Xylocaine spray and intravenous Versed and fentanyl. The patient tolerated the procedure well without any obvious immediate complications. SEDATION: Patient received moderate conscious sedation. Total sedation time was 15 minutes. FINDINGS: 1. There is no intracardiac thrombus within the left atrial appendage, left atrium, right atrium, right ventricle or left ventricle. 2. There is no evidence of pcrn-ic-jniew shunt by color-flow Doppler or xasxe-gg-xrxe shunt by agitated saline contrast study. 3. LV systolic function is normal. 4. Aorta is free of atherosclerotic changes. 5. 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 It measures 4.2 cm at the level of the aortic sinuses. Aortic valve is a 3-leaflet valve. There is no evidence of aortic stenosis or regurgitation. There is trace mitral and tricuspid regurgitation. CONCLUSIONS: 1. This transesophageal echo shows normal LV systolic function, dilated aortic root at the level of the aortic sinuses measuring 4.2 cm without significant aortic regurgitation. 2. There is no evidence of jbmu-wl-xdatg shunt by color-flow Doppler or riluc-xv-sury shunt by saline contrast study. 3. There is no intracardiac thrombus. MMODL / IJN: [id number] /
--- NOTE | 2018-12-18 14:48 | LTR ---
DATE OF SERVICE: 12/18/[address] Ramos: I performed transesophageal echo on Cedrick Becker. A detailed report is enclosed for your records. In brief, his transesophageal echocardiogram does not reveal intracardiac thrombus, shows normal LV systolic function and there is no evidence of shunting across the interatrial septum. Thank you for giving me the privilege to participate in the care of this pleasant gentleman. Sincerely, MMISISL / IJN: [id number] /
[2018-12-18] MEDS: ATORVASTATIN 40 MG TAB PO SCH (20:33)
[2018-12-19] MEDS: ASPIRIN 81 MG PO SCH (09:32)
[2018-12-19] MEDS: HEPARIN SODIUM,PORCINE 5,000 UNIT/ML 1 ML VIAL SQ SCH (09:32)
[2018-12-19] MEDS: FAMOTIDINE 20 MG/2 ML VIAL IV SCH (09:32)
[2018-12-19] MEDS: CLOPIDOGREL 75 MG TAB PO SCH (09:32)
[2018-12-19 11:23] VITALS: BP 107/71; TEMP 97.1
[2018-12-19 12:40] VITALS: PULSE 87; RESP 14
--- NOTE | 2018-12-19 14:18 | P.PN ---
Subjective Progress Note Date: 12/19/18 This is a pleasant 58-year-old gentleman with no prior documented history of hypertension, no diabetes, no hyperlipidemia, he is unaware of his family history as he was adopted, he is a nonsmoker, denies any EtOH use. Patient presents to the hospital with symptoms of slurring of speech with ass ociated issues with coordination. morning, the patient was getting ready to go to work, generally not feeling well, noticed some slurring of his speech and decided to stay home. The following morning, he continued to have slurring of speech and some issues with coordination, therefore came to the emergency room for further evaluation and treatment. Patient does state that he gets intermittent dizzy episodes, relates that to his sinuses and usually takes Zyrtec for this. CAT scan of the brain was performed on arrival here which showed patchy periventricular white matter hypodensity, likely on the basis of chronic white matter ischemic changes. Coronary infarct within the left basal ganglion not excluded. This could be chronic or indeterminant age. CT angiography did not reveal any flow-limiting stenosis in the carotids. Chest x- ray did not reveal any acute process. EKG showed normal sinus rhythm with nonspecific ST-T wave changes. An echocardiogram with Doppler study was performed which revealed an ejection fraction of 60-65%. Blood pressure 110/60 with a heart rate in the 70s to 90s, 98% on room air. White blood cell count 5.8, hemoglobin 14.9, platelet count 227. Sodium 139, potassium 4.4, BUN 24 and creatinine 1.1. Troponin negative 1. TSH normal, cholesterol 175, LDL 111, HDL 51, triglycerides 65. At the time of my examination this morning, the mel friend still has mild slurring of speech, cardiology was requested to see the patient to perform a transesophageal echocardiographic study. The procedure itself was explained to the patient as well as its risks and benefits. This will be performed today by Dr. Guzman. 12/19/2018 Mazin underwent a transesophageal echocardiographic study yesterday which did not reveal any intracardiac thrombus within the left atrial appendage, left atrium, right atrium, right ventricle, or left ventricle. There is no evidence of ewco-sa-thmjz shunt by color flow Doppler or right to left shunt by agitated saline. LV systolic function is normal. Aorta is free of atherosclerotic changes. 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 It measures 4.2 cm at the level of the aortic sinus. Aortic valve is a 3 leaflet valve. No evidence of aortic stenosis or regurgitation. There is trace mitral and tricuspid regurg. Patient was seen and examined today, overall doing well. Hemodynamically stable. Objective - Vital Signs Vital signs: Vital Signs Temp 97.1 F L 12/19/18 08:00 Pulse 87 12/19/18 12:00 Resp 14 12/19/18 12:00 BP 107/71 12/19/18 08:00 Pulse Ox 94 L 12/19/18 08:00 Intake & Output 12/18/18 12/19/18 12/19/18 18:59 06:59 18:59 Intake Total 783 360 480 Balance 783 360 480 Weight 92.4 kg Intake: IV 175 Oral 608 360 480 Other: Voiding Method Toilet Toilet # Voids 1 2 1 - Exam PHYSICAL EXAMINATION: GENERAL: 58-year-old gentleman in no acute distress at the time of my exam HEENT: Head is atraumatic, normocephalic. Pupils equal, round. Sclera anicteric. Conjunctiva are clear. Mucous membranes of the mouth are moist. Neck is supple. There is no elevated jugular venous pressure. No carotid bruit is heard. HEART EXAMINATION: Heart S1, S2 normal. No murmur or gallop heard. CHEST EXAMINATION: Lungs are clear to auscultation and precussion. No chest wall tenderness is noted on palpation or with deep breathing. ABDOMEN: Soft, nontender. Bowel sounds are heard. No organomegaly noted. EXTREMITIES: 2+ peripheral pulses with no evidence of peripheral edema and no calf tenderness noted. NEUROLOGIC patient is awake, alert and oriented 3, mild slurring of speech, mild left-sided facial droop - Labs CBC & Chem 7: 12/16/18 05:48 12/18/18 06:18 Assessment and Plan Plan: Assessment and plan #1 slurring of speech with some coordination issues, MRI of the brain shows lacunar infarct in the right emmanuel/brainstem junction, also showing significant. Ventricular white matter changes. Plan FLORENCE performed yesterday revealed normal LV systolic function, dilated root at the level of aortic sinus measuring 4.2 cm without any significant aortic regurgitation. There is no evidence of hfci-wc-qqscf shunt by color flow Doppler or right to left shunt by saline contrast. There is no intracardiac thrombus cardiology's perspective, patient may be able to be discharged home today. We will make a follow-up appointment with Dr. Anna in the office in 3-4 weeks post discharge. DNP note has been reviewed, I agree with a documented findings and plan of care. Patient was seen and examined.
--- NOTE | 2018-12-19 16:23 | P.DS ---
Providers Date of admission: 12/15/18 10:37 Attending physician: Camille Barroso Consults: 12/15/18 10:26 Consult Physician Stat Consulting Provider: Viky Owen Consult Reason/Comments: CVA Do you want consulting provider notified?: Yes 12/18/18 08:12 Consult Physician Urgent Consulting Provider: Rajinder Guzman Consult Reason/Comments: may need FLORENCE Do you want consulting provider notified?: Yes Primary care physician: [facility] Course: Diagnoses: -Acute slurred speech/difficulty with right hand coordination. MRI showing right emmanuel thrombosis. Significantly improved -Essential hypertension, better controlled -Aortic root aneurysm, 4.2 cm -Primary osteoarthritis Hospital course: This is a pleasant 58 years old male with past medical history of osteoarthritis. Patient presents because of acute onset of slurred speech, right facial droop and right hand coordination difficulties for example during the portion his teeth. Patient has been evaluated by neurologist, his status is improving. Patient states that his speech is better today, his right hand this coordination is improved by 95%. He is able to walk with no difficulty. PT/OT recommended home with no therapy. He denies specific weakness or numbness. MRI was suspicious for right brainstem/Rand stroke, neurologist also recommended FLORENCE done by auto body mechanic which showed aortic root aneurysm about 4.2 cm above the level of the aortic sinuses. With no evidence of aortic stenosis or regurgitation, no intracardiac thrombosis. On the day of discharge patient is working with no difficulty, he is using both hands with no difficulty. No headache. No chest pain. No dyspnea. He denies abdominal pain or nausea vomiting. He is tolerating diet well. No fever. pt will be discharged on plavix x3wk, aspirin and lipitor as per neurology recommendation Problems and management plan were discussed with the patient and he verbalized understanding and acceptance. Patient was found stable and can be discharged home however he needs follow-up as an outpatient. Patient was instructed to follow up with PCP within one week and patient agrees. Patient was instructed to follow up with his neurologist in 1-2 weeks, patient's told me he wants to follow up with his neurologist recommended for him by his sister, he has the contact information at home and he is going to call and make appointment as instructed. Also patient was instructed to follow up with auto body mechanic in 1-2 weeks for residential monitor and follow-up of his aortic aneurysm and he agrees.pt agrees with appointment made for him with pcp , cardiology and neurology and states he will follow up Gen: patient is a AAOx3, no distress CVS: S1-S2, RRR, no murmur Lungs: B/L CTA, no wheezing Abdomen: soft, no distention, no tenderness, positive bowel sounds Extremity: no leg edema or induration Time spent more than 35 minutes Patient Condition at Discharge: Stable Plan - Discharge Summary Discharge Rx Participant: No New Discharge Prescriptions: New RX: Aspirin 81 mg PO DAILY #30 chew RX: Atorvastatin [Lipitor] 40 mg PO HS #30 tab RX: Clopidogrel [Plavix] 75 mg PO DAILY 21 Days #21 tab Discontinued Cetirizine HCl/Pseudoephedrine [Zyrtec-D Tablet] 1 tab PO Q12H PRN PRN Reason: Allergy Symptoms Discharge Medication List RX: Aspirin 81 mg PO DAILY #30 chew 12/19/18 [Rx] RX: Atorvastatin [Lipitor] 40 mg PO HS #30 tab 12/19/18 [Rx] RX: Clopidogrel [Plavix] 75 mg PO DAILY 21 Days #21 tab 12/19/18 [Rx] Follow up Appointment(s)/Referral(s): Lisbeth Guillen MD [STAFF PHYSICIAN] - 01/03/19 9:30 am (Tuesday) Richard Glover DO [Primary Care Provider] - 12/25/18 1:00 pm (Tuesday with PA) Rajinder Guzman MD [STAFF PHYSICIAN] - 01/16/19 3:15 pm (Tuesday) Patient Instructions/Handouts: Heart Healthy Diet (DC), Brain Stem Infarction (DC) Activity/Diet/Wound Care/Special Instructions: Heart healthy diet Activity is limited till you see your doctor Discharge Disposition: HOME SELF-CARE
[2018-12-19] MEDS ORDERED: FAMOTIDINE 20 MG TAB PO SCH (21:00)
== END 2018-12-19 15:48 | disposition home or self-care (01) | DRG 65 ==
LOC: EC 08:25 → 3SCARD 10:37
PROVIDERS: ADMIT Hospitalist; ATTEND Hospitalist
PROC: B246ZZ4 Ultrasonography of Right and Left Heart, Transesophageal (ICD-10-PCS; principal; 2018-12-18 09:30)
DX: I63.09 Cerebral infarction due to thrombosis of other precerebral artery (principal); Q25.43 Congenital aneurysm of aorta; I15.9 Secondary hypertension, unspecified; R27.8 Other lack of coordination; R47.81 Slurred speech; R29.810 Facial weakness; R40.2362 Coma scale, best motor response, obeys commands, at arrival to emergency department; R40.2142 Coma scale, eyes open, spontaneous, at arrival to emergency department; R40.2252 Coma scale, best verbal response, oriented, at arrival to emergency department; M17.0 Bilateral primary osteoarthritis of knee; Z98.890 Other specified postprocedural states; Z86.73 Personal history of transient ischemic attack (TIA), and cerebral infarction without residual deficits
CPT/HCPCS: 36415; 70450; 70496; 70498; 70551; 71046; 80048; 80053; 80061; 83036; 84443; 84484; 85025; 85610; 85730; 93005; 93306; 93312; 93320; 93325; 96360; 99285

== ENCOUNTER 2019-03-03 18:25 | Emergency (ER) | payer OTHER ==
[2019-03-03 18:32] VITALS: RESP 18
--- NOTE | 2019-03-03 19:04 | ED ---
General Adult HPI - General Chief complaint: Neuro Symptoms/Deficit Stated complaint: hx stroke, speech trouble Time Seen by Provider: 03/03/19 18:37 Source: patient, RN notes reviewed Mode of arrival: ambulatory Limitations: no limitations - History of Present Illness Initial comments: 58-year-old male presenting with an episode of slurred speech. Symptoms began at approximately 1730. They lasted 5 minutes and completely resolved. Patient has previous history of CVA 3 months prior to arrival. He had hospital admission was started on aspirin and Plavix and statin at that time. He has been compliant with these medications, he did state there was a delay in taking his medications today and he took them just prior to arrival. At the time my e valuation his symptoms have completely resolved, no limb weakness or numbness, no dysarthria or aphasia. Patient has no complaints. No headache. No chest pain or dyspnea. No abdominal pain. - Related Data Previous Rx's Medication Instructions Recorded Aspirin 81 mg PO DAILY #30 chew 12/19/18 Atorvastatin [Lipitor] 40 mg PO HS #30 tab 12/19/18 Clopidogrel [Plavix] 75 mg PO DAILY 21 Days #21 tab 12/19/18 Allergies Allergy/AdvReac Type Severity Reaction Status Date / Time No Known Allergies Allergy Verified 03/03/19 18:28 Review of Systems ROS Statement: Those systems with pertinent positive or pertinent negative responses have been documented in the HPI. ROS Other: All systems not noted in ROS Statement are negative. Past Medical History Past Medical History: CVA/TIA, Osteoarthritis (OA) Additional Past Medical History / Comment(s): Patient states in the past few months, he has had episodes of vertigo/nausea and possible slight slurring of speech once before, arthritis bilateral knees, sinus issues. History of Any Multi-Drug Resistant Organisms: None Reported Past Surgical History: Tonsillectomy Additional Past Surgical History / Comment(s): Colonoscopy-normal Past Anesthesia/Blood Transfusion Reactions: No Reported Reaction, Motion Sickness Additional Past Anesthesia/Blood Transfusion Reaction / Comment(s): adopted Past Psychological History: No Psychological Hx Reported Smoking Status: Never smoker Past Alcohol Use History: None Reported Past Drug Use History: None Reported - Past Family History Mother Family Medical History: Unable to Obtain Additional Family Medical History / Comment(s): adopted Father Family Medical History: Unable to Obtain Additional Family Medical History / Comment(s): adopted General Exam Limitations: no limitations General appearance: alert, in no apparent distress Head exam: Present: atraumatic, normocephalic Eye exam: Present: normal appearance, PERRL, EOMI ENT exam: Present: normal exam Neck exam: Present: normal inspection. Absent: tenderness, meningismus Respiratory exam: Present: normal lung sounds bilaterally. Absent: respiratory distress, wheezes Cardiovascular Exam: Present: regular rate, normal rhythm GI/Abdominal exam: Present: soft. Absent: distended, tenderness, guarding Extremities exam: Present: normal inspection, normal capillary refill. Absent: pedal edema Neurological exam: Present: alert, oriented X3, CN II-XII intact, other (nih 0). Absent: motor sensory deficit Psychiatric exam: Present: normal affect, normal mood Skin exam: Present: warm, dry, intact. Absent: cyanosis, diaphoretic Course Vital Signs 03/03/19 03/03/19 18:29 19:48 Temperature 98.1 F Pulse Rate 74 74 Respiratory 18 18 Rate Blood Pressure 126/83 128/95 O2 Sat by Pulse 97 96 Oximetry - Reevaluation(s) Reevaluation #1: 03/03/19 19:43 Patient had taken aspirin and Plavix just prior to arrival EKG Findings - EKG Comments: EKG Findings:: EKG: Normal sinus rhythm, rate of 78, MD interval 180, QRS duration 100, QTC 426, no ST segment elevation T-wave inversion in lead 3 Medical Decision Making - Medical Decision Making 58-year-old male history of CVA presenting with episode of dysarthria lasting approximately 5 minutes. Patient is neurologically intact upon arrival with sta ble vitals. He has an NIH of 0. No dysarthria or aphasia. No ataxia. No focal weakness. Head CT is performed this is negative for intracranial hemorrhage or mass effect. Chest x-ray negative for any acute cardiopulmonary disease. He has normal CBC, normal electrolytes. He has a EKG showing sinus rhythm. He had taken aspirin and Plavix just prior to arrival. I did discuss the patient with his neurologist Dr. Chacon at the [facility] who is very familiar with this patient. He does not recommend any further treatment or evaluation at this time. Does not feel this patient requires observation or admission to this institution or the [facility]. He will follow-up with this patient as an outpatient, recommends the patient call Tuesday morning for an outpatient appointment. Patient remains asymptomatic with a nonfocal neurologic exam no other complaints. - Lab Data Result diagrams: 03/03/19 18:50 03/03/19 18:50 Lab Results 03/03/19 03/03/19 03/03/19 Range/Units 18:50 18:50 18:50 WBC 5.3 (3.8-10.6) k/uL RBC 4.92 (4.30-5.90) m/uL Hgb 14.8 (13.0-17.5) gm/dL Hct 42.7 (39.0-53.0) % MCV 86.9 (80.0-100.0) fL MCH 30.2 (25.0-35.0) pg MCHC 34.7 (31.0-37.0) g/dL RDW 12.3 (11.5-15.5) % Plt Count 267 (150-450) k/uL Neutrophils % 55 % Lymphocytes % 33 % Monocytes % 8 % Eosinophils % 2 % Basophils % 1 % Neutrophils # 2.9 (1.3-7.7) k/uL Lymphocytes # 1.8 (1.0-4.8) k/uL Monocytes # 0.4 (0-1.0) k/uL Eosinophils # 0.1 (0-0.7) k/uL Basophils # 0.0 (0-0.2) k/uL PT 10.2 (9.0-12.0) sec INR 1.0 (<1.2) APTT 24.5 (22.0-30.0) sec Sodium 142 (137-145) mmol/L Potassium 4.3 (3.5-5.1) mmol/L Chloride 105 (98-107) mmol/L Carbon Dioxide 25 (22-30) mmol/L Anion Gap 12 mmol/L BUN 24 H (9-20) mg/dL Creatinine 0.90 (0.66-1.25) mg/dL Est GFR (CKD-EPI)AfAm >90 (>60 ml/min/1.73 sqM) Est GFR (CKD-EPI)NonAf >90 (>60 ml/min/1.73 sqM) Glucose 99 (74-99) mg/dL Calcium 9.2 (8.4-10.2) mg/dL Total Bilirubin 0.5 (0.2-1.3) mg/dL AST 25 (17-59) U/L ALT 20 (4-49) U/L Alkaline Phosphatase 77 (38-126) U/L Troponin I (0.000-0.034) ng/mL Total Protein 6.9 (6.3-8.2) g/dL Albumin 4.3 (3.5-5.0) g/dL 03/03/19 Range/Units 18:50 WBC (3.8-10.6) k/uL RBC (4.30-5.90) m/uL Hgb (13.0-17.5) gm/dL Hct (39.0-53.0) % MCV (80.0-100.0) fL MCH (25.0-35.0) pg MCHC (31.0-37.0) g/dL RDW (11.5-15.5) % Plt Count (150-450) k/uL Neutrophils % % Lymphocytes % % Monocytes % % Eosinophils % % Basophils % % Neutrophils # (1.3-7.7) k/uL Lymphocytes # (1.0-4.8) k/uL Monocytes # (0-1.0) k/uL Eosinophils # (0-0.7) k/uL Basophils # (0-0.2) k/uL PT (9.0-12.0) sec INR (<1.2) APTT (22.0-30.0) sec Sodium (137-145) mmol/L Potassium (3.5-5.1) mmol/L Chloride (98-107) mmol/L Carbon Dioxide (22-30) mmol/L Anion Gap mmol/L BUN (9-20) mg/dL Creatinine (0.66-1.25) mg/dL Est GFR (CKD-EPI)AfAm (>60 ml/min/1.73 sqM) Est GFR (CKD-EPI)NonAf (>60 ml/min/1.73 sqM) Glucose (74-99) mg/dL Calcium (8.4-10.2) mg/dL Total Bilirubin (0.2-1.3) mg/dL AST (17-59) U/L ALT (4-49) U/L Alkaline Phosphatase (38-126) U/L Troponin I <0.012 (0.000-0.034) ng/mL Total Protein (6.3-8.2) g/dL Albumin (3.5-5.0) g/dL Disposition Clinical Impression: Transient cerebral ischemia Disposition: HOME SELF-CARE Condition: Good Is patient prescribed a controlled substance at d/c from ED?: No Referrals: Richard Glover DO [Primary Care Provider] - 1-2 days Time of Disposition: 20:48
[2019-03-03 19:15] LABS: ALT 20 U/L (4-49); AST 25 U/L (17-59); African American GFR (CKD) >90 (>60 ml/min/1.73 sqM); Albumin 4.3 g/dL (3.5-5.0); Alkaline Phosphatase 77 U/L (38-126); Anion Gap 12 mmol/L; Blood Urea Nitrogen 24 mg/dL (9-20); Calcium 9.2 mg/dL (8.4-10.2); Carbon Dioxide 25 mmol/L (22-30); Chloride 105 mmol/L (98-107); Glucose 99 mg/dL (74-99); Non-African American GFR(CKD) >90 (>60 ml/min/1.73 sqM); Potassium 4.3 mmol/L (3.5-5.1); Sodium 142 mmol/L (137-145); Total Bilirubin 0.5 mg/dL (0.2-1.3); Total Protein 6.9 g/dL (6.3-8.2)
[2019-03-03 19:18] LABS: Basophils % (A) 1 %; Eosinophils # (A) 0.1 k/uL (0-0.7); Eosinophils % (A) 2 %; HCT 42.7 % (39.0-53.0); HGB 14.8 gm/dL (13.0-17.5); Lymphocytes # (A) 1.8 k/uL (1.0-4.8); Lymphocytes % (A) 33 %; MCH 30.2 pg (25.0-35.0); MCHC 34.7 g/dL (31.0-37.0); MCV 86.9 fL (80.0-100.0); Mean Platelet Volume 7.6; Monocytes # (A) 0.4 k/uL (0-1.0); Monocytes % (A) 8 %; Neutrophils # (A) 2.9 k/uL (1.3-7.7); Neutrophils % (A) 55 %; Platelet Count 267 k/uL (150-450); RBC 4.92 m/uL (4.30-5.90); RDW 12.3 % (11.5-15.5); WBC 5.3 k/uL (3.8-10.6)
[2019-03-03 19:21] LABS: Partial Thromboplastin Time 24.5 sec (22.0-30.0); Prothrombin Time 10.2 sec (9.0-12.0)
--- NOTE | 2019-03-03 19:27 | XR ---
EXAMINATION TYPE: XR chest 2V DATE OF EXAM: 03/03/2019 COMPARISON: Prior chest x-ray 12/15/2018 HISTORY: Altered mental status TECHNIQUE: Frontal and lateral views of the chest are obtained. FINDINGS: There is no focal air space opacity, pleural effusion, or pneumothorax seen. The cardiac silhouette size is within normal limits. The osseous structures are intact. There are overlying car diac leads. IMPRESSION: No acute cardiopulmonary process.
--- NOTE | 2019-03-03 19:30 | CT ---
EXAMINATION TYPE: CT brain wo con DATE OF EXAM: 03/03/2019 COMPARISON: Prior CT brain 12/15/2018 and MRI 12/15/2018 HISTORY: Garbled speech, headache. Hx stroke. CT DLP: 1129.4 mGycm Automated exposure control for dose reduction was used. Head CT performed using departmental protocol FINDINGS: There is no interval change. IMPRESSION: STABLE EXAM, NO ACUTE ABNORMALITY. NONSPECIFIC WHITE MATTER CHANGES. CONSIDER FOLLOW-UP MRI.
[2019-03-03 19:52] VITALS: BP 128/95
[2019-03-03 21:04] VITALS: PULSE 87; TEMP 98.5
== END 2019-03-03 21:04 | disposition home or self-care (01) ==
LOC: EC 18:25
DX: G45.9 Transient cerebral ischemic attack, unspecified (principal)
CPT/HCPCS: 36415; 70450; 71046; 80053; 84484; 85025; 85610; 85730; 93005; 99285

== ENCOUNTER 2019-05-17 12:21 | Emergency (ER) | payer OTHER ==
[2019-05-17 12:26] VITALS: TEMP 97.4
[2019-05-17 12:31] LABS: Glucose,Whole Blood 112 mg/dL (75-99)
[2019-05-17] MEDS ORDERED: SODIUM CHLORIDE 0.9% 1,000 ML IV STA (12:46)
[2019-05-17] MEDS ORDERED: ONDANSETRON 4 MG/2 ML VIAL IVP STA (12:46)
--- NOTE | 2019-05-17 13:14 | ED ---
Neuro HPI - General Chief Complaint: Neuro Symptoms/Deficit Stated Complaint: stroke symptoms Time Seen by Provider: 05/17/19 12:25 Source: patient, family Mode of arrival: wheelchair Limitations: no limitations - History of Present Illness Is the patient presenting with stroke symptoms?: Yes Last Known Well Date: 05/16/19 Last Known Well Time: 17:30 Initial Comments: The patient is a 58-year-old male with past history of stroke in December of last year presents to the emergency room with reported intermittent episodes of confused speech and dizziness. The patient originally had a stroke back in November of last year. He was placed on statin in [place]. He has been t aking his medications as directed without any missed doses. states that over the past 3 days he has had intermittent episodes of confused speech last for approximately 5 minutes. Last episode was last night. They called their neurologist Dr. Chacon at [facility] 2 days ago who wanted to monitor the patient. When he had an episode last night they called him again and he called in [facility] to the pharmacy. 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 This morning he began feeling nauseated and vomited once. Because of this she decided to bring him into the emergency room. He denies any limb numbness or weakness. Denies speech issues. No headaches or visual changes. Denies any chest pain or abdominal pain. No fevers or chills. No recent illnesses. Patient arrives and has an NIH of 0. Review the patient's chart reveals that he was seen in February for the Same complaint. - Related Data Home Medications: Home Medications Medication Instructions Recorded Confirmed Ticagrelor [Brilinta] 90 mg PO BID 05/17/19 05/17/19 Topiramate 50 mg PO DIRECTED 05/17/19 05/17/19 Topiramate [Topamax] 25 mg PO DIRECTED 05/17/19 05/17/19 Previous Rx's Medication Instructions Recorded Aspirin 81 mg PO DAILY #30 chew 12/19/18 Atorvastatin [Lipitor] 40 mg PO HS #30 tab 12/19/18 Allergies/Adverse Reactions: Allergies Allergy/AdvReac Type Severity Reaction Status Date / Time No Known Allergies Allergy Verified 05/17/19 13:14 Review of Systems ROS Statement: Those systems with pertinent positive or pertinent negative responses have been documented in the HPI. ROS Other: All systems not noted in ROS Statement are negative. General Exam Limitations: no limitations General appearance: alert, in no apparent distress Head exam: Present: atraumatic, normocephalic, normal inspection Eye exam: Present: normal appearance, PERRL, EOMI. Absent: scleral icterus, conjunctival injection, periorbital swelling ENT exam: Present: normal exam, mucous membranes moist Neck exam: Present: normal inspection. Absent: tenderness, meningismus, lymphadenopathy Respiratory exam: Present: normal lung sounds bilaterally. Absent: respiratory distress, wheezes, rales, rhonchi, stridor Cardiovascular Exam: Present: regular rate, normal rhythm, normal heart sounds. Absent: systolic murmur, diastolic murmur, rubs, gallop, clicks GI/Abdominal exam: Present: soft, normal bowel sounds. Absent: distended, tenderness, guarding, rebound, rigid Extremities exam: Present: normal inspection, full ROM, normal capillary refill. Absent: tenderness, pedal edema, joint swelling, calf tenderness Back exam: Present: normal inspection Neurological exam: Present: alert, oriented X3, CN II-XII intact, other (speech is normal. Finger to nose is symmetric) Psychiatric exam: Present: normal affect, normal mood Skin exam: Present: warm, dry, intact, normal color. Absent: rash Stroke MDM - Lab Data Result diagrams: 05/17/19 12:58 05/17/19 12:58 Lab Results 05/17/19 05/17/19 05/17/19 Range/Units 12:30 12:58 12:58 WBC 12.0 H (3.8-10.6) k/uL RBC 5.35 (4.30-5.90) m/uL Hgb 16.1 (13.0-17.5) gm/dL Hct 46.5 (39.0-53.0) % MCV 86.9 (80.0-100.0) fL MCH 30.1 (25.0-35.0) pg MCHC 34.6 (31.0-37.0) g/dL RDW 12.6 (11.5-15.5) % Plt Count 191 (150-450) k/uL Neutrophils % 85 % Lymphocytes % 11 % Monocytes % 4 % Eosinophils % 0 % Basophils % 0 % Neutrophils # 10.2 H (1.3-7.7) k/uL Lymphocytes # 1.3 (1.0-4.8) k/uL Monocytes # 0.4 (0-1.0) k/uL Eosinophils # 0.0 (0-0.7) k/uL Basophils # 0.0 (0-0.2) k/uL PT 11.1 (9.0-12.0) sec INR 1.1 (<1.2) APTT 22.8 (22.0-30.0) sec Sodium (137-145) mmol/L Potassium (3.5-5.1) mmol/L Chloride (98-107) mmol/L Carbon Dioxide (22-30) mmol/L Anion Gap mmol/L BUN (9-20) mg/dL Creatinine (0.66-1.25) mg/dL Est GFR (CKD-EPI)AfAm (>60 ml/min/1.73 sqM) Est GFR (CKD-EPI)NonAf (>60 ml/min/1.73 sqM) Glucose (74-99) mg/dL POC Glucose (mg/dL) 112 H (75-99) mg/dL POC Glu Radar Operator ID Sowmya Graves Calcium (8.4-10.2) mg/dL Total Bilirubin (0.2-1.3) mg/dL AST (17-59) U/L ALT (4-49) U/L Alkaline Phosphatase (38-126) U/L Troponin I (0.000-0.034) ng/mL Total Protein (6.3-8.2) g/dL Albumin (3.5-5.0) g/dL 05/17/19 05/17/19 Range/Units 12:58 12:58 WBC (3.8-10.6) k/uL RBC (4.30-5.90) m/uL Hgb (13.0-17.5) gm/dL Hct (39.0-53.0) % MCV (80.0-100.0) fL MCH (25.0-35.0) pg MCHC (31.0-37.0) g/dL RDW (11.5-15.5) % Plt Count (150-450) k/uL Neutrophils % % Lymphocytes % % Monocytes % % Eosinophils % % Basophils % % Neutrophils # (1.3-7.7) k/uL Lymphocytes # (1.0-4.8) k/uL Monocytes # (0-1.0) k/uL Eosinophils # (0-0.7) k/uL Basophils # (0-0.2) k/uL PT (9.0-12.0) sec INR (<1.2) APTT (22.0-30.0) sec Sodium 138 (137-145) mmol/L Potassium 4.4 (3.5-5.1) mmol/L Chloride 105 (98-107) mmol/L Carbon Dioxide 26 (22-30) mmol/L Anion Gap 7 mmol/L BUN 27 H (9-20) mg/dL Creatinine 0.97 (0.66-1.25) mg/dL Est GFR (CKD-EPI)AfAm >90 (>60 ml/min/1.73 sqM) Est GFR (CKD-EPI)NonAf 86 (>60 ml/min/1.73 sqM) Glucose 117 H (74-99) mg/dL POC Glucose (mg/dL) (75-99) mg/dL POC Glu Radar Operator ID Calcium 9.8 (8.4-10.2) mg/dL Total Bilirubin 1.1 (0.2-1.3) mg/dL AST 28 (17-59) U/L ALT 37 (4-49) U/L Alkaline Phosphatase 83 (38-126) U/L Troponin I <0.012 (0.000-0.034) ng/mL Total Protein 7.1 (6.3-8.2) g/dL Albumin 4.5 (3.5-5.0) g/dL - Medical Decision Making Upon arrival the patient was placed into room 2. A thorough history and physical exam was performed. NIH 0. The patient is completely alert and oriented. No focal deficits. No speech difficulties or confusion. The patient does have emesis upon presentation. Peripheral IV is establish and the patient is given Zofran. I did recommend laboratory studies as well as a CT and CT angiography the patient's brain. Blood cell count is 12. Coagulation studies normal. Chemistries show a bun of 27. Chest x-ray demonstrates no acute cardio pulmonary process. CT angiography of the brain and x-rays no flow limiting stenosis in the bilateral carotid bifurcations. Normal [place]. 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 No significant interval change. CT of the brain with patchy to confluent periventricular white matter chronic ischemic type changes. No acute infarcts. I called and discussed the case with Dr. Chacon who is the patient's neurologist [facility]. He is aware of the patient's current symptoms. He is recommending Topamax treatment. He had previously called this into the pharmacy and he does think that the best treatment plan would be for the patient to start this. The taper has been provided to the patient. We did discuss the case at [facility]. He also like the patient to continue his aspirin and Brilinta. He follow-up in his office for further evaluation. Return to the emergency room for any new worsening symptoms. Patient agreed to this was discharged home EKG demonstrates a normal sinus rhythm with a ventricular rate of 77. UT interval 184. QRS 104. QTC 443. Inverted T-wave in lead 3. No acute ST segment elevations or depressions. 05/17/19 13:15 Past Medical History Past Medical History: CVA/TIA, Osteoarthritis (OA) Additional Past Medical History / Comment(s): Patient states in the past few months, he has had episodes of vertigo/nausea and possible slight slurring of speech once before, arthritis bilateral knees, sinus issues. History of Any Multi-Drug Resistant Organisms: None Reported Past Surgical History: Tonsillectomy Additional Past Surgical History / Comment(s): Colonoscopy-normal Past Anesthesia/Blood Transfusion Reactions: No Reported Reaction, Motion Sickness Additional Past Anesthesia/Blood Transfusion Reaction / Comment(s): adopted Past Psychological History: No Psychological Hx Reported Smoking Status: Never smoker Past Alcohol Use History: None Reported Past Drug Use History: None Reported - Past Family History Mother Family Medical History: Unable to Obtain Additional Family Medical History / Comment(s): adopted Father Family Medical History: Unable to Obtain Additional Family Medical History / Comment(s): adopted Course Vital Signs 05/17/19 05/17/19 05/17/19 12:22 13:02 15:16 Temperature 97.4 F L Pulse Rate 73 75 78 Respiratory 20 18 16 Rate Blood Pressure 122/81 123/86 120/80 O2 Sat by Pulse 98 98 97 Oximetry Disposition Clinical Impression: Vomiting, Confusion Disposition: HOME SELF-CARE Condition: Stable Instructions (If sedation given, give patient instructions): Altered Mental Status (ED) Additional Instructions: Please follow-up with Dr. Chacon. Call for an appointment. Take the Topamax as directed. Return to the emergency room for any new or worsening symptoms Is patient prescribed a controlled substance at d/c from ED?: No Referrals: Richard Glover DO [Primary Care Provider] - 1-2 days Time of Disposition: 15:04
[2019-05-17 13:27] LABS: Basophils % (A) 0 %; Eosinophils % (A) 0 %; HCT 46.5 % (39.0-53.0); HGB 16.1 gm/dL (13.0-17.5); Lymphocytes # (A) 1.3 k/uL (1.0-4.8); Lymphocytes % (A) 11 %; MCH 30.1 pg (25.0-35.0); MCHC 34.6 g/dL (31.0-37.0); MCV 86.9 fL (80.0-100.0); Mean Platelet Volume 7.9; Monocytes # (A) 0.4 k/uL (0-1.0); Monocytes % (A) 4 %; Neutrophils # (A) 10.2 k/uL (1.3-7.7); Neutrophils % (A) 85 %; Platelet Count 191 k/uL (150-450); RBC 5.35 m/uL (4.30-5.90); RDW 12.6 % (11.5-15.5)
--- NOTE | 2019-05-17 13:42 | XR ---
EXAMINATION TYPE: XR chest 2V DATE OF EXAM: 05/17/2019 COMPARISON: 03/03/2019 INDICATION: Altered mental status TECHNIQUE: Frontal and lateral views of the chest are obtained. FINDINGS: The heart size is normal. The pulmonary vasculature is normal. The lungs are clear. IMPRESSION: 1. No acute pulmonary process.
[2019-05-17 13:46] LABS: INR 1.1 (<1.2)
[2019-05-17 13:47] LABS: ALT 37 U/L (4-49); AST 28 U/L (17-59); African American GFR (CKD) >90 (>60 ml/min/1.73 sqM); Albumin 4.5 g/dL (3.5-5.0); Alkaline Phosphatase 83 U/L (38-126); Anion Gap 7 mmol/L; Blood Urea Nitrogen 27 mg/dL (9-20); Calcium 9.8 mg/dL (8.4-10.2); Carbon Dioxide 26 mmol/L (22-30); Chloride 105 mmol/L (98-107); Glucose 117 mg/dL (74-99); Non-African American GFR(CKD) 86 (>60 ml/min/1.73 sqM); Partial Thromboplastin Time 22.8 sec (22.0-30.0); Potassium 4.4 mmol/L (3.5-5.1); Prothrombin Time 11.1 sec (9.0-12.0); Sodium 138 mmol/L (137-145); Total Bilirubin 1.1 mg/dL (0.2-1.3); Total Protein 7.1 g/dL (6.3-8.2)
--- NOTE | 2019-05-17 14:39 | CT ---
EXAMINATION TYPE: CT angio head neck DATE OF EXAM: 05/17/2019 HISTORY: headache, nausea, dizziness, dysphasia COMPARISON: 12/15/2018 CTA, 12/15/[address] DLP: 1650.5 mGycm. Automated Exposure Control for Dose Reduction was Utilized. TECHNIQUE: CTA scan of the neck is performed with IV Contrast, patient injected with 65 mL of Isovue 300, axial images are obtained, coronal and sagittal reformatted images are reviewed. Three-D recons tructed images are created on an independent workstation and reviewed. Source images are reviewed. FINDINGS: Progress CT brain: Noncontrast imaging is performed through the brain at 3 mm thick section s. Reconstructed coronal and sagittal plane imaging is performed There is periventricular white matter patchy to confluent white matter hypodensity, likely on the bas is of chronic white matter ischemic changes. No suspicious acute infarcts are evident. No abnormal hy perdensity is present to suggest an acute intracranial hemorrhage. No mass lesion is evident. Ventric les and sulci appear appropriate for the patient age. Carotid/Vascular Structures: There is a three-vessel arch. The innominate and the left common carotid artery origins are very proximally oriented. Vertebral arteries are codominant. Carotid bifurcations appear normal without focal stenosis. Internal carotid arteries are patent to the level of the skull base. Cervical of [place]: Vertebral basilar system appears normal. Posterior cerebral vasculature is unrema rkable. Left internal carotid artery bifurcates normally into A1 and M1 segments. The right A1 segmen t appears to be absent. The right M1 segment appears normal. A2 segments are normal. The anterior com municating artery is patent. Left Posterior communicating artery is patent. Right posterior communica ting artery is patent. Other: Portion of the thyroid visualized is normal. Vocal cord level is symmetrical. IMPRESSION: 1. No flow-limiting stenosis bilateral carotid bifurcations. 2. Normal [place]. 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 3. No significant interval change. 4. CT brain with patchy to confluent periventricular white matter chronic ischemic type changes. No a cute infarcts are evident.
[2019-05-17 15:17] VITALS: BP 120/80; PULSE 78; RESP 16
== END 2019-05-17 15:13 | disposition home or self-care (01) ==
LOC: EC 12:21
DX: R41.0 Disorientation, unspecified (principal); R11.2 Nausea with vomiting, unspecified; R94.02 Abnormal brain scan; R47.89 Other speech disturbances; R42 Dizziness and giddiness; Z79.02 Long term (current) use of antithrombotics/antiplatelets; Z79.899 Other long term (current) drug therapy; Z86.73 Personal history of transient ischemic attack (TIA), and cerebral infarction without residual deficits
CPT/HCPCS: 99285; 96374; 96361; 36415; 93005; 80053; 84484; 85025; 85610; 85730; 71046; 70496; 70498; J2405; Q9967

== ENCOUNTER → 2021-03-05 | Outpatient (CLI) | payer OTHER ==
[2021-03-05 15:07] LABS: HDL Cholesterol 55.4 mg/dL (40.00-60.00); Triglycerides 36.2 mg/dL (0.00-149.00)
[2021-03-05 15:25] LABS: Chol/HDL Ratio 2.11 Ratio; LDL Cholesterol,Direct Reflex 53.3 mg/dL (0.00-129.00)
== END | disposition home or self-care (01) ==
LOC: LABWHC1 09:15
PROVIDERS: ATTEND Internal Medicine Cardiovascular Disease
DX: E78.2 Mixed hyperlipidemia (principal)
CPT/HCPCS: 36415; 80061; 83721; 84450; 84460

== ENCOUNTER → 2022-03-10 | Outpatient (CLI) | payer OTHER ==
[2022-03-10 10:55] LABS: ALT 21 U/L (10-49); AST 23 U/L (14-35); Chol/HDL Ratio 2.46 Ratio; LDL Cholesterol,Calculated 60.2 mg/dL (0.0-131.0); VLDL Calculation 13.32 mg/dL (5.00-40.00)
== END | disposition home or self-care (01) ==
LOC: LABWHC1 08:17
PROVIDERS: ATTEND Internal Medicine Cardiovascular Disease
DX: E78.2 Mixed hyperlipidemia (principal)
CPT/HCPCS: 36415; 80061; 84450; 84460

== ENCOUNTER → 2023-02-09 | Outpatient (CLI) | payer OTHER ==
[2023-02-09 15:04] LABS: Chol/HDL Ratio 2.64 Ratio; VLDL Calculation 10.62 mg/dL (5.00-40.00)
[2023-02-09 15:05] LABS: ALT 32 U/L (10-49); AST 18 U/L (14-35); LDL Cholesterol,Calculated 75.7 mg/dL (0.0-131.0)
== END | disposition home or self-care (01) ==
LOC: LABWHC1 09:58
PROVIDERS: ATTEND Internal Medicine Cardiovascular Disease
DX: E78.2 Mixed hyperlipidemia (principal)
CPT/HCPCS: 36415; 80061; 84450; 84460

== ENCOUNTER 2023-07-19 19:58 | Inpatient (IN) | payer OTHER ==
[2023-07-19 20:44] LABS: Basophils % (A) 0 %; Eosinophils # (A) 0.1 k/uL (0-0.7); Eosinophils % (A) 1 %; HCT 46.4 % (39.0-53.0); HGB 15.3 gm/dL (13.0-17.5); Lymphocytes # (A) 1.9 k/uL (1.0-4.8); Lymphocytes % (A) 32 %; MCH 29.9 pg (25.0-35.0); MCHC 33.1 g/dL (31.0-37.0); MCV 90.4 fL (80.0-100.0); Mean Platelet Volume 7.8; Monocytes # (A) 0.4 k/uL (0-1.0); Monocytes % (A) 7 %; Neutrophils # (A) 3.4 k/uL (1.3-7.7); Neutrophils % (A) 58 %; Platelet Count 207 k/uL (150-450); RBC 5.13 m/uL (4.30-5.90); RDW 12.6 % (11.5-15.5); WBC 5.8 k/uL (3.8-10.6)
[2023-07-19 20:49] LABS: ALT 32 U/L (4-49); AST 29 U/L (17-59); African American GFR (CKD) 89 (>60 ml/min/1.73 sqM); Albumin 4.5 g/dL (3.5-5.0); Alkaline Phosphatase 90 U/L (38-126); Anion Gap 4 mmol/L; Blood Urea Nitrogen 25 mg/dL (9-20); Calcium 9.5 mg/dL (8.4-10.2); Carbon Dioxide 28 mmol/L (22-30); Chloride 106 mmol/L (98-107); Creatine Kinase 88 U/L (55-170); Glucose 127 mg/dL (74-99); Non-African American GFR(CKD) 77 (>60 ml/min/1.73 sqM); Potassium 4.6 mmol/L (3.5-5.1); Sodium 138 mmol/L (137-145); Total Bilirubin 1.1 mg/dL (0.2-1.3); Total Protein 6.9 g/dL (6.3-8.2)
[2023-07-19 20:55] LABS: INR 0.9 (<1.2); Partial Thromboplastin Time 23.9 sec (22.0-30.0); Prothrombin Time 10.2 sec (10.0-12.5)
[2023-07-19 20:57] LABS: Glucose,Whole Blood 138 mg/dL (70-110)
--- NOTE | 2023-07-19 22:17 | XR ---
EXAMINATION TYPE: XR chest 2V DATE OF EXAM: 07/19/2023 COMPARISON: Prior chest x-ray May 17, 2019 HISTORY: Altered mental status TECHNIQUE: Frontal and lateral views of the chest are obtained. FINDINGS: There is no suspicious new focal air space opacity, pleural effusion, or pneumothorax seen . The cardiac silhouette size is stable and upper limits of normal. The osseous structures are int act. IMPRESSION: No acute cardiopulmonary process.
--- NOTE | 2023-07-19 22:37 | CT ---
EXAMINATION TYPE: CODE STROKE: CT brain wo contr CT DLP: 1070.6 mGycm, Automated exposure control for dose reduction was used. DATE OF EXAM: 07/19/2023 8:47 PM COMPARISON: None.. CLINICAL INDICATION:Male, 62 years old with history of Neuro deficit, acute, stroke suspected, Neuro deficit, acute, stroke suspected TECHNIQUE: Brain: Axial CT images of the brain were obtained with coronal and sagittal reformats created and rev iewed. Contrast used: None. Oral contrast used: None. FINDINGS: Extra-axial spaces: No abnormal extra-axial fluid collections. Basilar cisterns are patent. Ventricular system: Ventricles appear dilated in proportion to the degree of cerebral atrophy. Cerebral parenchyma: No increased attenuation to suggest acute intraparenchymal hemorrhage. The gra y-white matter interface appears maintained. Mild/moderate generalized brain atrophy. Scattered hyp oattenuating areas are seen within the cerebral white matter, nonspecific but most often seen with ch ronic microvascular ischemic changes; moderate in degree. Cerebellum: No acute abnormality. Mass effect: No evidence of mass effect or midline shift. Intracranial vasculature: Unremarkable Soft tissues: No acute or concerning abnormality. Visualized orbits: Orbital contents appear grossly intact. Calvarium/osseous structures: No evidence of calvarial fracture. Paranasal sinuses and mastoid air cells: Clear. MRI is more sensitive for detecting acute processes such as infarct, and may be considered if clinica lly warranted. IMPRESSION: 1. No evidence of acute intracranial hemorrhage, midline shift, or mass effect. No evidence of acute infarct by CT. 2. Atrophy and chronic microvascular ischemic changes.
[2023-07-19] MEDS: ASPIRIN 325 MG TAB PO STA (23:25)
[2023-07-19] MEDS: SODIUM CHLORIDE 0.9% 1,000 ML IV SCH (23:25)
--- NOTE | 2023-07-19 23:28 | CT ---
EXAMINATION TYPE: CT angio head neck DATE OF EXAM: 07/19/2023 9:11 PM COMPARISON: 05/18/2019. CLINICAL INDICATION:Male, 62 years old with history of Neuro deficit, acute, stroke suspected; PHH, N euro deficit, acute, stroke suspected TECHNIQUE: Axially acquired helical CT angiogram of the head and neck was obtained with contrast. Axi al images are supplemented with 3D reconstructions [facility]ET criteria used. Contrast used: 65 cc mL of Isovue 370 with IV Contrast, Oral contrast used: None. CT DLP: 613.5 mGycm, Automated exposure control for dose reduction was used. FINDINGS: CTA Neck: Patent three-vessel arch is shown. There is partially visualized dilatation of the ascending aorta to 4.2 cm. No dissection is seen. Bilateral common carotid arteries are normally patent. Bifurcations are patent, without significant a therosclerotic disease or luminal narrowing. ICAs are patent to the skull base. The vertebral arteries both appear to arise from the subclavian arteries. The left is dominant. No si gnificant disease or stenosis is seen. Soft tissues of the neck show no acute or concerning abnormality. The included lung apices show mild chronic sinus changes without acute infiltrate or pneumothorax. Mild to moderate degenerative changes of the cervical spine with straightening and slight reversal of the normal cervical lordosis. Disc osteophyte complexes at C5-C6 and C6-C7 cause [id number] ca nal and neural foraminal stenoses. CTA Head: Bilateral intracranial ICAs appear patent. Cavernous portions appear mildly ectatic. Supraclinoid ICAs appear patent bilaterally. There are patent carotid termini. On the right, the MCA appears patent without significant stenosis or aneurysm. The right A1 segment is aplastic. On the lef t, the MCA and ORQUIDEA and distal arborization patterns are patent. The left ORQUIDEA supplies the right ORQUIDEA A 2 segment and beyond, via collateral flow through the anterior communicating artery which appears nor mal. The intracranial vertebral arteries enhance normally. The left appears dominant. Basilar artery is pa tent and unremarkable. Normal basilar bifurcation without evidence of aneurysm. Visualized proximal P Hayden are patent. The right posterior communicating artery is widely patent, and actually seems to represent a or igin of the right posterior cerebral artery. A left posterior communicating artery is not definitively seen. No intracranial large vessel occlusion, hemodynamically significant stenosis, aneurysm, dissection, o r arteriovenous malformation is shown. The dural venous sinuses appear grossly patent without evidence of thrombosis. Other: Please refer to same-day CT head report for further description of findings.. No acute soft tissue abnormality is seen. IMPRESSION: CTA neck: * Patent CTA Neck. * No significant atherosclerotic disease or stenosis involving the carotid or internal carotid arter ies in the neck bilaterally. * Cervical vertebral arteries appear unremarkable. * Partially seen fusiform ascending aortic aneurysm measures up to 4.2 cm. CTA head: * Patent CTA head. 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 The more distal vessel is supplied by the left side. * No intracranial large vessel occlusion, significant stenosis, or sizable aneurysm detected in the limits of CTA.
--- NOTE | 2023-07-19 23:38 | ED ---
Neuro HPI - General Chief Complaint: Neuro Symptoms/Deficit Stated Complaint: POSSIBLE STROKE Time Seen by Provider: 07/19/23 20:19 Source: patient Mode of arrival: ambulatory - History of Present Illness Is the patient presenting with stroke symptoms?: Yes Last Known Well Date: 07/19/23 Last Known Well Time: 19:00 -: hour(s) Initial Comments: This patient is a 62-year-old man coming to have evaluation for suspected stroke. The patient had taken a nap around 7 PM. He was awakened that approximately 7:30 PM and his noticed that he had left facial droop and was having slurring of his speech. The patient reports that he had similar symptoms, dysarthria and was having difficulty performing math problems and 2019 and was diagnosed with a stroke. There is reportedly no residual. The patient denies headache. Denies other neurologic symptoms. The patient had been maintained on Brilinta until recently but currently now only taking a statin and 81 mg aspirin. Location: speech, left face History of same: Yes Place: home Severity: mild Quality: weak Improves With: time Worsens With: none On Anticoagulants: No Context: sudden onset Associated Symptoms: denies other symptoms Treatments Prior to Arrival: none - Related Data Home Medications: Previous Rx's Medication Instructions Recorded Aspirin 81 mg PO DAILY #30 chew 12/19/18 Atorvastatin [Lipitor] 40 mg PO HS #30 tab 12/19/18 Clopidogrel [Plavix] 75 mg PO DAILY #30 tablet 07/21/23 Clopidogrel [Plavix] 75 mg PO DAILY 30 Days tab 07/21/23 Allergies/Adverse Reactions: Allergies Allergy/AdvReac Type Severity Reaction Status Date / Time No Known Allergies Allergy Verified 07/20/23 09:42 Review of Systems ROS Statement: Those systems with pertinent positive or pertinent negative responses have been documented in the HPI. ROS Other: All systems not noted in ROS Statement are negative. Constitutional: Denies: fever, chills Eyes: Denies: vision change ENT: Denies: hearing loss Respiratory: Denies: cough, dyspnea Cardiovascular: Denies: chest pain, palpitations, syncope Gastrointestinal: Denies: abdominal pain, nausea, vomiting Genitourinary: Denies: dysuria, hematuria Musculoskeletal: Denies: back pain Skin: Denies: rash Neurological: Reports: weakness (Left facial). Denies: headache, numbness, confusion General Exam General appearance: alert, in no apparent distress Head exam: Present: atraumatic, normocephalic Eye exam: Present: normal appearance. Absent: scleral icterus, conjunctival injection ENT exam: Present: normal oropharynx Neck exam: Present: normal inspection, full ROM. Absent: meningismus Respiratory exam: Present: normal lung sounds bilaterally. Absent: respiratory distress, wheezes, rales, rhonchi, stridor, accessory muscle use Cardiovascular Exam: Present: regular rate, normal rhythm, normal heart sounds. Absent: systolic murmur, diastolic murmur, rubs, gallop GI/Abdominal exam: Present: soft. Absent: distended, tenderness, guarding, rebound, rigid, mass Extremities exam: Present: normal inspection, normal capillary refill. Absent: pedal edema, calf tenderness Back exam: Present: normal inspection. Absent: CVA tenderness (R), CVA tenderness (L) Neurological exam: Present: alert, oriented X3, CN II-XII intact, other (There is mild dysarthria). Absent: motor sensory deficit Skin exam: Present: warm, dry, intact, normal color. Absent: rash Stroke MDM - Lab Data Result diagrams: 07/21/23 07:21 07/21/23 07:21 Lab Results 07/19/23 07/19/23 07/19/23 Range/Units 20:10 20:10 20:10 WBC 5.8 (3.8-10.6) k/uL RBC 5.13 (4.30-5.90) m/uL Hgb 15.3 (13.0-17.5) gm/dL Hct 46.4 (39.0-53.0) % MCV 90.4 (80.0-100.0) fL MCH 29.9 (25.0-35.0) pg MCHC 33.1 (31.0-37.0) g/dL RDW 12.6 (11.5-15.5) % Plt Count 207 (150-450) k/uL MPV 7.8 Neutrophils % 58 % Lymphocytes % 32 % Monocytes % 7 % Eosinophils % 1 % Basophils % 0 % Neutrophils # 3.4 (1.3-7.7) k/uL Lymphocytes # 1.9 (1.0-4.8) k/uL Monocytes # 0.4 (0-1.0) k/uL Eosinophils # 0.1 (0-0.7) k/uL Basophils # 0.0 (0-0.2) k/uL PT 10.2 (10.0-12.5) sec INR 0.9 (<1.2) APTT 23.9 (22.0-30.0) sec Sodium 138 (137-145) mmol/L Potassium 4.6 (3.5-5.1) mmol/L Chloride 106 (98-107) mmol/L Carbon Dioxide 28 (22-30) mmol/L Anion Gap 4 mmol/L BUN 25 H (9-20) mg/dL Creatinine 1.03 (0.66-1.25) mg/dL Est GFR (CKD-EPI)AfAm 89 (>60 ml/min/1.73 sqM) Est GFR (CKD-EPI)NonAf 77 (>60 ml/min/1.73 sqM) Glucose 127 H (74-99) mg/dL POC Glucose (mg/dL) (70-110) mg/dL POC Glu Groundskeeper Supervisor ID Calcium 9.5 (8.4-10.2) mg/dL Total Bilirubin 1.1 (0.2-1.3) mg/dL AST 29 (17-59) U/L ALT 32 (4-49) U/L Alkaline Phosphatase 90 (38-126) U/L Creatine Kinase 88 (55-170) U/L Troponin I (0.000-0.034) ng/mL Total Protein 6.9 (6.3-8.2) g/dL Albumin 4.5 (3.5-5.0) g/dL 07/19/23 07/19/23 Range/Units 20:10 20:56 WBC (3.8-10.6) k/uL RBC (4.30-5.90) m/uL Hgb (13.0-17.5) gm/dL Hct (39.0-53.0) % MCV (80.0-100.0) fL MCH (25.0-35.0) pg MCHC (31.0-37.0) g/dL RDW (11.5-15.5) % Plt Count (150-450) k/uL MPV Neutrophils % % Lymphocytes % % Monocytes % % Eosinophils % % Basophils % % Neutrophils # (1.3-7.7) k/uL Lymphocytes # (1.0-4.8) k/uL Monocytes # (0-1.0) k/uL Eosinophils # (0-0.7) k/uL Basophils # (0-0.2) k/uL PT (10.0-12.5) sec INR (<1.2) APTT (22.0-30.0) sec Sodium (137-145) mmol/L Potassium (3.5-5.1) mmol/L Chloride (98-107) mmol/L Carbon Dioxide (22-30) mmol/L Anion Gap mmol/L BUN (9-20) mg/dL Creatinine (0.66-1.25) mg/dL Est GFR (CKD-EPI)AfAm (>60 ml/min/1.73 sqM) Est GFR (CKD-EPI)NonAf (>60 ml/min/1.73 sqM) Glucose (74-99) mg/dL POC Glucose (mg/dL) 138 H (70-110) mg/dL POC Glu Groundskeeper Supervisor ID Peter Vera Calcium (8.4-10.2) mg/dL Total Bilirubin (0.2-1.3) mg/dL AST (17-59) U/L ALT (4-49) U/L Alkaline Phosphatase (38-126) U/L Creatine Kinase (55-170) U/L Troponin I <0.012 (0.000-0.034) ng/mL Total Protein (6.3-8.2) g/dL Albumin (3.5-5.0) g/dL - NIH Stroke Scale 1a. Level of Consciousness: (0) alert 1b. LOC Questions: (0) answers correctly 1c. LOC Commands: (0) performs tasks correctly 2. Best Gaze: (0) normal 3. Visual: (0) no visual loss 4. Facial Palsy: (0) normal symmetrical movement 5a. Motor Arm Left: (0) no drift 5b. Motor Arm Right: (0) no drift 6a. Motor Leg Left: (0) no drift 6b. Motor Leg Right: (0) no drift 7. Limb Ataxia: (0) absent 8. Sensory: (0) normal 9. Best Language: (0) no aphasia 10. Dysarthria: (1) mild/moderate dysarthria 11. Extinction/Inattention: (0) no abnormality - Thrombolytic Inclusion/Exclusion Thrombolytic Contraindications: Risks Outweigh Benefits - Medical Decision Making The patient had chest x-ray that I interpreted as negative for acute infiltrate, pneumothorax, congestive heart failure The patient had CT scan of the brain that I interpreted as negative for acute bony injury or acute intracranial hemorrhage. No evident acute stroke. Was pt. sent in by a medical professional or institution (, PA, SENIOR SHIPPING CLERK, urgent care, hospital, or halfway...) When possible be specific @ -[No] Did you speak to anyone other than the patient for history (EMS, parent, family, police, friend...)? What history was obtained from this source @ -Patient's family contributed to the history given Did you review nursing and triage notes (agree or disagree)? Why? @ -[I reviewed and agree with nursing and triage notes] Were old charts reviewed (outside hosp., previous admission, EMS record, old EKG, old radiological studies, urgent care reports/EKG's, halfway records)? Report findings @ -[No old charts were reviewed] Differential Diagnosis (chest pain, altered mental status, abdominal pain women, abdominal pain men, vaginal bleeding, weakness, fever, dyspnea, syncope, headache, dizziness, GI bleed, back pain, seizure, CVA, palpatations, mental health, musculoskeletal)? @ -Differential CVA Ischemic stroke, hemorrhagic stroke, brain tumor, atypical migraine, Wernicke's encephalopathy, seizure, multiple sclerosis, meningitis, encephalitis, hypog lycemia, Guillain-Jurado, electrolytes disturbance, myasthenia gravis.... This is not meant to be an all-inclusive list EKG interpreted by me (3pts min.). @ -[I interpreted as above] X-rays interpreted by me (1pt min.). @ -[I interpreted as above CT interpreted by me (1pt min.). @ -[Interpreted as above U/S interpreted by me (1pt. min.). @ -[None done] What testing was considered but not performed or refused? (CT, X-rays, U/S, labs)? Why? @ -[None] What meds were considered but not given or refused? Why? @ -[None] Did you discuss the management of the patient with other professionals (pro fessionals i.e. , PA, SENIOR SHIPPING CLERK, lab, RT, psych nurse, social and human services assistant, oracle ebs architect, teacher, supply officer, casework specialist)? Give summary @ -[The case was discussed with the admitting physician. The case was d iscussed with the stroke team and their recommendations are incorporated Was smoking cessation discussed for >3mins.? @ -[No] Was critical care preformed (if so, how long)? @ -[Yes, 35 minutes Were there social determinants of health that impacted care today? How? (Homelessness, low income, unemployed, alcoholism, drug addiction, transportation, low edu. Level, literacy, decrease access to med. care, senior living, rehab)? @ -[No] Was there de-escalation of care discussed even if they declined (Discuss DNR or withdrawal of care, Hospice)? DNR status @ -[No] What co-morbidities impacted this encounter? (DM, HTN, Smoking, COPD, CAD, Cancer, CVA, ARF, Chemo, Hep., AIDS, mental health diagnosis, sleep apnea, morbid obesity)? @ -[None] Was patient admitted / discharged? Hospital course, mention meds given and route, prescriptions, significant lab abnormalities, going to OR and other pertinent info. @ -[This patient is a 62-year-old man who presents to have evaluation for acute changes concerning for stroke. He is workup as stroke protocol, will be admitted to neurology for continuing evaluation and treatment. Undiagnosed new problem with uncertain prognosis? @ -[No] Drug Therapy requiring intensive monitoring for toxicity (Heparin, Nitro, Insulin, Cardizem)? @ -[No] Were any procedures done? @ -[No] Diagnosis/symptom? @ -[Acute dysarthria Acute ischemic stroke versus TIA Acute, or Chronic, or Acute on Chronic? @ -[Acute Uncomplicated (without systemic symptoms) or Complicated (systemic symptoms)? @ -[Complicated Side effects of treatment? @ -[No] Exacerbation, Progression, or Severe Exacerbation? @ -[No] Poses a threat to life or bodily function? How? (Chest pain, [place], [place], pneumonia, PE, COPD, DKA, ARF, appy, cholecystitis, CVA, Diverticulitis, Homicidal, Suicidal, threat to staff... and all critical care pts) @ -Yes, untreated stroke/TIA may result in permanent neurologic disability Past Medical History Past Medical History: CVA/TIA, Osteoarthritis (OA) Additional Past Medical History / Comment(s): Patient states in the past few months, he has had episodes of vertigo/nausea and possible slight slurring of speech once before, arthritis bilateral knees, sinus issues. History of Any Multi-Drug Resistant Organisms: None Reported Past Surgical History: Tonsillectomy Additional Past Surgical History / Comment(s): Colonoscopy-normal Past Anesthesia/Blood Transfusion Reactions: No Reported Reaction, Motion Sickness Additional Past Anesthesia/Blood Transfusion Reaction / Comment(s): adopted Past Psychological History: No Psychological Hx Reported Past Alcohol Use History: None Reported Past Drug Use History: None Reported - Past Family History Mother Family Medical History: Unable to Obtain Additional Family Medical History / Comment(s): adopted Father Family Medical History: Unable to Obtain Additional Family Medical History / Comment(s): adopted Course Vital Signs 07/19/23 07/19/23 07/19/23 20:18 20:48 21:01 Temperature 97.6 F Pulse Rate 77 77 75 Respiratory 18 18 18 Rate Blood Pressure 132/79 118/86 118/82 O2 Sat by Pulse 93 L 95 94 L Oximetry 07/20/23 07/20/23 07/20/23 01:27 05:30 08:37 Temperature Pulse Rate 67 74 89 Respiratory 18 18 16 Rate Blood Pressure 115/84 139/88 126/78 O2 Sat by Pulse 94 L 96 95 Oximetry 07/20/23 07/20/23 07/20/23 10:43 11:16 12:16 Temperature Pulse Rate 88 85 75 Respiratory 18 16 14 Rate Blood Pressure 119/83 119/79 117/75 O2 Sat by Pulse 96 96 96 Oximetry 07/20/23 07/20/23 07/20/23 13:16 14:20 15:23 Temperature Pulse Rate 81 76 75 Respiratory 16 16 16 Rate Blood Pressure 121/84 103/76 106/68 O2 Sat by Pulse 95 95 95 Oximetry 07/20/23 07/20/23 07/20/23 16:00 17:00 18:00 Temperature Pulse Rate 92 84 79 Respiratory 12 12 18 Rate Blood Pressure 122/78 103/70 105/75 O2 Sat by Pulse 93 L 93 L Oximetry 07/20/23 07/20/23 07/20/23 19:00 19:16 22:18 Temperature Pulse Rate 74 85 80 Respiratory 18 20 16 Rate Blood Pressure 110/75 110/75 115/83 O2 Sat by Pulse 96 91 L 93 L Oximetry 07/20/23 23:07 Temperature Pulse Rate 82 Respiratory 15 Rate Blood Pressure 115/82 O2 Sat by Pulse 98 Oximetry - Reevaluation(s) Reevaluation #1: 07/20/23 00:46 Patient is 62-year-old man here with dysarthria and having had left facial vaishali op. That seems to have resolved and now the patient only having dysarthria. He scored NIH of [address] scan. I discussed the case with the stroke team, the midlevel who is covering while Dr. Webb is finishing a procedure. At this point the risks of TNKase outweigh benefits. The patient will be admitted with aspirin, statin, neurology workup. Critical Care Time Critical Care Time: Yes (35 minutes) Disposition Clinical Impression: Dysarthria Disposition: ADMITTED IP TO THIS [facility] Condition: Good Is patient prescribed a controlled substance at d/c from ED?: No
[2023-07-20] MEDS: ACETAMINOPHEN TAB 325 MG TAB PO STA (01:44)
[2023-07-20] MEDS ORDERED: ONDANSETRON 4 MG/2 ML VIAL IVP PRN (02:32)
--- NOTE | 2023-07-20 03:50 | P.HPIM ---
History of Present Illness H&P Date: 07/20/23 Patient is a 62-year-old male with history of CVA in 2019 with no residual deficits who presents to the emergency room with complaints of sudden onset of strokelike symptoms. The patient notes that he had gone to take a nap at around 4 PM when upon waking at around 7 he had developed slurring of his speech with left-sided facial droop and left sided paresthesias. The symptoms were also noticed by his . He he reports compliance with his aspirin and statin at home. Patient notes that his symptoms gradually improved after arrival at the emergency room and have now almost entirely resolved aside from mild slurring of speech. He denies experiencing visual disturbances, weakness, gait abn ormalities. Does report that the paresthesias were largely in the left arm. Also reports a mild diffuse headache, rated at a 2 out of 10 at the time of interview denies experiencing chest discomfort, shortness of breath, fever, chills, cough. CT brain and CT angiogram head neck both revealed no acute abnormalities. Chest x-ray was unremarkable with EKG showing sinus rhythm at [address]/T wave changes noted as reviewed by me. Laboratory evaluation was remarkable for troponin less than 0.012, BUN 25, creatinine 1.03, glucose 127, WBC count 5.8, hemoglobin 15.3, and platelet count 207. ED documentation reviewed and case discussed with ED provider. Review of systems: Pertinent positives and negatives as discussed in HPI, a complete review of systems was performed and all other systems are negative. Physical examination: Vital signs reviewed General: non toxic, no distress, appears at stated age, overweight Derm: no unusual rashes/lesions, warm Head: atraumatic, normocephalic, symmetric Eyes: EOMI, no lid lag, anicteric sclera, pupils equal round reactive to light ENT: Nose and ears atraumatic Neck: No cervical lymphadenopathy, trachea midline, supple Mouth: no lip lesion, mucus membranes moist Cardiovascular: S1S2 reg, no murmur, positive dorsalis pedis pulse bilateral, no edema Lungs: CTA bilateral, no rhonchi, no rales, no accessory muscle use Abdominal: soft, nontender to palpation, no guarding Ext: muscle strength 5 out of 5 in all 4 extremities grossly, no gross muscle atrophy, no contractures, Neuro: CN II-XI grossly intact, no gross focal neuro deficits Psych: Alert, oriented, appropriate affect Assessment: Dysarthria, paresthesias, and left-sided facial droop, TIA versus CVA Imaging: CT brain and CT angiogram head neck both revealed no acute abnormalities. Chest x-ray was unremarkable with EKG showing sinus rhythm at [address]/T wave changes noted as reviewed by me. Data Review: Laboratory evaluation was remarkable for troponin less than 0.012, BUN 25, creatinine 1.03, glucose 127, WBC count 5.8, hemoglobin 15.3, and platelet count 207. Plan: Cardiac monitoring Obtain echocardiogram Neurology consulted Neurochecks Continue with aspirin, Plavix, and statin Fall precautions PT and MEAT WRAPPER consults DVT prophylaxis: Lovenox subcu The patient is admitted with an anticipated greater than 2 midnight stay for evaluation of TIA versus CVA CODE STATUS: Full Code Discussed with: Patient Anticipated discharge place: Home Past Medical History Past Medical History: CVA/TIA, Osteoarthritis (OA) Additional Past Medical History / Comment(s): Patient states in the past few months, he has had episodes of vertigo/nausea and possible slight slurring of speech once before, arthritis bilateral knees, sinus issues. History of Any Multi-Drug Resistant Organisms: None Reported Past Surgical History: Tonsillectomy Additional Past Surgical History / Comment(s): Colonoscopy-normal Past Anesthesia/Blood Transfusion Reactions: No Reported Reaction, Motion Sickness Additional Past Anesthesia/Blood Transfusion Reaction / Comment(s): adopted Past Psychological History: No Psychological Hx Reported Past Alcohol Use History: None Reported Past Drug Use History: None Reported - Past Family History Mother Family Medical History: Unable to Obtain Additional Family Medical History / Comment(s): adopted Father Family Medical History: Unable to Obtain Additional Family Medical History / Comment(s): adopted Medications and Allergies Home Medications Medication Instructions Recorded Confirmed Type Aspirin 81 mg PO DAILY #30 chew 12/19/18 05/17/19 Rx Atorvastatin [Lipitor] 40 mg PO HS #30 tab 12/19/18 05/17/19 Rx Ticagrelor [Brilinta] 90 mg PO BID 05/17/19 05/17/19 History Topiramate 50 mg PO DIRECTED 05/17/19 05/17/19 History Topiramate [Topamax] 25 mg PO DIRECTED 05/17/19 05/17/19 History Allergies Allergy/AdvReac Type Severity Reaction Status Date / Time No Known Allergies Allergy Verified 07/19/23 20:22 Physical Exam Vitals: Vital Signs Temp Pulse Resp BP Pulse Ox 07/20/23 01:27 67 18 115/84 94 L 07/19/23 21:01 75 18 118/82 94 L 07/19/23 20:48 77 18 118/86 95 07/19/23 20:18 97.6 F 77 18 132/79 93 L Intake and Output 07/19/23 07/19/23 07/20/23 14:59 22:59 06:59 Other: Weight 97.931 kg Results CBC & Chem 7: 07/19/23 20:10 07/19/23 20:10 Labs: Abnormal Lab Results - Last 24 Hours (Table) 07/19/23 07/19/23 Range/Units 20:10 20:56 BUN 25 H (9-20) mg/dL Glucose 127 H (74-99) mg/dL POC Glucose (mg/dL) 138 H (70-110) mg/dL
[2023-07-20] MEDS: ASPIRIN 325 MG TAB PO SCH (08:34)
[2023-07-20] MEDS: CLOPIDOGREL 75 MG TAB PO SCH (08:34)
[2023-07-20] MEDS: FAMOTIDINE 20 MG TAB PO SCH (08:34)
[2023-07-20 08:53] LABS: Chol/HDL Ratio 2.66 Ratio; LDL Cholesterol,Calculated 78.4 mg/dL (0.0-131.0); VLDL Calculation 10.24 mg/dL (5.00-40.00)
--- NOTE | 2023-07-20 15:40 | P.CNNES ---
History of Present Illness Consult date: 07/20/23 Requesting physician: Jose Torres Reason for Consult: dysarthria. TIA vs stroke History of Present Illness: This is a 62-year-old gentleman with history of stroke in 2019 without any residual deficit, positive cardiolipin antibody who presented emergency department because of left arm tingling, slurred speech and nausea. Patient is accompanied with his who is at bedside. It seems that the patient's symptoms began between 7 to 7:30 PM yesterday. He stated that headache was over the right frontal temporal region and was very mild. He had nausea but had some dry heaves. He had tingling over the left arm with slurred speech. His symptoms has resolved. He is on aspirin 81 mg daily. He is also on Lipitor 40 mg daily. He follows up with Dr. Chacon, neurologist over to [facility] for his stroke. In the past he was on aspirin and then Brilinta at that was transitioned to Plavix according to patient but it has been a while ago and ever since she has been on aspirin 81 mg daily. On any anticoagulation. He stated that he was on Topamax for headaches and was on 50 mg daily which was st opped about a month ago per neurologist recommendation. He was doing well until yesterday's event and they seem similar to his prior stroke symptoms. Denies history of atrial fibrillation or flutter. Per the ED team, patient had dysarthria and left facial droop and his facial droop has resolved. NIH stroke scale was a 1 for dysarthria. Code stroke was activated and no IV thrombolytic since the risk outweigh the benefits. The ED team spoke with Dr. Webb's midlevel. Review of Systems The positive and negative as per HPI. Past Medical History Past Medical History: CVA/TIA, Osteoarthritis (OA) Additional Past Medical History / Comment(s): Patient states in the past few months, he has had episodes of vertigo/nausea and possible slight slurring of speech once before, arthritis bilateral knees, sinus issues. History of Any Multi-Drug Resistant Organisms: None Reported Past Surgical History: Tonsillectomy Additional Past Surgical History / Comment(s): Colonoscopy-normal Past Anesthesia/Blood Transfusion Reactions: No Reported Reaction, Motion Sickness Additional Past Anesthesia/Blood Transfusion Reaction / Comment(s): adopted Past Psychological History: No Psychological Hx Reported Past Alcohol Use History: None Reported Past Drug Use History: None Reported - Past Family History Mother Family Medical History: Unable to Obtain Additional Family Medical History / Comment(s): adopted Father Family Medical History: Unable to Obtain Additional Family Medical History / Comment(s): adopted Medications and Allergies Home Medications Medication Instructions Recorded Confirmed Type Aspirin 81 mg PO DAILY #30 chew 12/19/18 07/20/23 Rx Atorvastatin [Lipitor] 40 mg PO HS #30 tab 12/19/18 07/20/23 Rx Allergies Allergy/AdvReac Type Severity Reaction Status Date / Time No Known Allergies Allergy Verified 07/20/23 09:42 Physical Examination - Vital Signs Vital Signs: Vital Signs Temp Pulse Resp BP Pulse Ox 07/20/23 14:20 76 16 103/76 95 07/20/23 13:16 81 16 121/84 95 07/20/23 12:16 75 14 117/75 96 07/20/23 11:16 85 16 119/79 96 07/20/23 10:43 88 18 119/83 96 07/20/23 08:37 89 16 126/78 95 07/20/23 05:30 74 18 139/88 96 07/20/23 01:27 67 18 115/84 94 L 07/19/23 21:01 75 18 118/82 94 L 07/19/23 20:48 77 18 118/86 95 07/19/23 20:18 97.6 F 77 18 132/79 93 L GENERAL: The patient is lying in bed and is not in acute distress. NEUROLOGICAL: Higher mental function: The patient is awake, alert, oriented to self, place and time. Patient is following commands. No aphasia and no neglect. Cranial nerves: The pupils are round, equal and reactive to light and accommodation. Visual gibson are full to confrontation throughout. Extraocular movement is intact no nystagmus is noted. Facial sensation is normal to touch throughout. The facial strength is normal throughout. Hearing is normal b ilaterally to hand rub. Tongue is midline and moved [id number] without any difficulty. No dysarthria is noted. Shoulder shrug is normal bilaterally. Motor: The strength is 5 over 5 throughout. Normal tone and bulk. Cerebellum: Normal finger to nose heel to contreras bilaterally. Sensation: Sensation is normal to touch throughout. Reflexes (right/left): 2+ throughout. Plantars are downgoing bilaterally. Results Some of the workup during this hospital visit consisted of: Initial serum glucose is 127. CBC with differential is unremarkable. Sodium, creatinine are normal. Lipid panel is triglyceride is 51, cholesterol is 142, LDL is 78 and HDL is 53 CT of the head is reported as no evidence of acute intracranial hemorrhage, midline shift or mass effect. No evidence of acute infarct by CT. Atrophy and chronic microvascular ischemic changes. Reviewed the CT and agree there is no acute or subacute intracranial process. CT angiography of the neck is reported as patent CT angiography. No significant atherosclerotic disease or stenosis involving the carotid or internal carotid artery in the neck. Cervical vertebral artery appears unremarkable. Partially seen fusiform AAA ascending aortic aneurysm measuring up to 4.[address] angiography of the head is reported as patent CT angiography of the head. 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 The more distal vessel is supplied by the left side. No intracranial l arge vessel occlusion, significant stenosis or sizable aneurysm detected in the limits of CT angiography. EKG is reported as sinus rhythm. Normal EKG - Laboratory Findings CBC and BMP: 07/19/23 20:10 07/19/23 20:10 Abnormal Lab Findings: Abnormal Labs 07/19/23 07/19/23 20:10 20:56 BUN 25 H Glucose 127 H POC Glucose (mg/dL) 138 H Assessment and Plan Assessment: This is a 62-year-old gentleman with history of stroke in 2019 without any residual deficit, positive cardiolipin antibody who presents because yesterday between 7 and 730 he had episode of slurred speech, left arm tingling nausea and mild headache over the right frontal temporal region. Symptoms resolved. Likely transient ischemic attack (presented with symptoms of dysarthria, left arm tingling. Per the ED he had facial weakness). History of stroke in 2019 without any residual deficit History of positive cardiolipin antibody Plan: Patient was given aspirin 325 once in the ED then resumed on his home dose of aspirin 81 mg. Patient was started on Plavix 75 mg daily. I agree with start of Plavix. Patient is on Lipitor 40 mg nightly and that sufficient for sec ondary stroke prophylaxis Ordered MRI of the brain the echo Continue neurochecks Cardiac monitoring PT OT and SITE AUDITOR are consulted Will defer the rest of the medical management to the primary team For DVT prophylaxis I started the patient on subcu heparin 5000 units every 12 hours Discharge recommend the patient to follow-up with his neurologist, Dr. Chacon over [facility] within 1 to 2 weeks. The plan discussed with the patient and his was at bedside. Thank you for the consultation. Time with Patient: Greater than 30
--- NOTE | 2023-07-20 17:17 | CA ---
Transthoracic Echo Report Name: Cedrick Becker Age: 62 Gender: M : 1960 Exam Date: 07/20/2023 15:19 Exam Location: [place] [facility] Ht (in): 73 Wt (lb): 215 Ordering Physician: Blue Renae MD Attending/Referring Phys: Change Analyst Mana Sharp RDCS Procedure CPT: Indications: stroke Cardiac Hx: Technical Quality: Good Contrast 1: Agitated Saline Total Dose (mL): 9 Contrast 2: Total Dose (mL): MEASUREMENTS (Male / Female) Normal Values 2D ECHO LV Diastolic Diameter PLAX 3.8 cm 4.2 - 5.9 / 3.9 - 5.3 cm LV Systolic Diameter PLAX 2.9 cm IVS Diastolic Thickness 1.0 cm 0.6 - 1.0 / 0.6 - 0.9 cm LVPW Diastolic Thickness 1.0 cm 0.6 - 1.0 / 0.6 - 0.9 cm LV Relative Wall Thickness 0.5 RV Internal Dim ED PLAX 3.2 cm LA Systolic Diameter LX 3.1 cm 3.0 - 4.0 / 2.7 - 3.8 cm LA Volume 69.0 cm??? 18 - 58 / 22 - 52 cm??? LA Volume Index 30.5 cm???/m??? 16 - 28 cm???/m??? M-MODE Aortic Root Diameter MM 4.3 cm AV Cusp Separation MM 2.6 cm DOPPLER AV Peak Velocity 106.8 cm/s AV Peak Gradient 4.6 mmHg MV Area PHT 2.7 cm??? Mitral E Point Velocity 55.6 cm/s Mitral A Point Velocity 63.7 cm/s Mitral E to A Ratio 0.9 MV Deceleration Time 281.9 ms FINDINGS Left Ventricle Left ventricular ejection fraction is estimated at 55-60 %. Small left ventricular cavity. Left ventricular wall thickness normal. Normal left ventricular wall motion. Right Ventricle Normal right ventricular size and function. Unable to estimate the right ventricular systolic pressure. Right Atrium Normal right atrial size. No right atrial thrombus or mass seen. Negative agitated saline bubble study for right to left shunt. Left Atrium Mildly increased left atrial volume. Mildly increased left atrial area. Mitral Valve Structurally normal mitral valve. No mitral stenosis, regurgitation or prolapse. Aortic Valve Trileaflet aortic valve. No aortic valve stenosis or regurgitation. Tricuspid Valve Structurally normal tricuspid valve. No tricuspid stenosis, regurgitation or prolapse. Pulmonic Valve Structurally normal pulmonic valve. Trace pulmonic regurgitation. Pericardium No pericardial or pleural effusion. Aorta Moderate aortic dilatation at the level of the sinuses of valsalva 43 mm CONCLUSIONS Normal LV systolic function Moderately dilated aortic root measuring 4.3 cm Negative bubble study Consider transesophageal echo for definitive evaluation Previewed by: Dr. Rajinder Guzman MD (Electronically Signed) Final Date: 20 July 2023 17:16
[2023-07-20] MEDS: ATORVASTATIN 40 MG TAB PO SCH (19:41)
[2023-07-20] MEDS: HEPARIN SODIUM,PORCINE 5,000 UNIT/ML 1 ML VIAL SQ SCH (19:42)
[2023-07-20 23:28] VITALS: RESP 18
[2023-07-21 08:07] LABS: Basophils % (A) 1 %; Eosinophils # (A) 0.1 k/uL (0-0.7); Eosinophils % (A) 1 %; HCT 45.4 % (39.0-53.0); HGB 14.7 gm/dL (13.0-17.5); Lymphocytes # (A) 1.8 k/uL (1.0-4.8); Lymphocytes % (A) 33 %; MCH 29.4 pg (25.0-35.0); MCHC 32.4 g/dL (31.0-37.0); MCV 90.7 fL (80.0-100.0); Mean Platelet Volume 8.1; Monocytes # (A) 0.4 k/uL (0-1.0); Monocytes % (A) 7 %; Neutrophils # (A) 3.2 k/uL (1.3-7.7); Neutrophils % (A) 57 %; Platelet Count 194 k/uL (150-450); RDW 12.8 % (11.5-15.5); WBC 5.6 k/uL (3.8-10.6)
[2023-07-21 08:22] LABS: ALT 26 U/L (4-49); AST 25 U/L (17-59); African American GFR (CKD) >90 (>60 ml/min/1.73 sqM); Albumin 3.7 g/dL (3.5-5.0); Alkaline Phosphatase 80 U/L (38-126); Anion Gap 4 mmol/L; Blood Urea Nitrogen 19 mg/dL (9-20); Calcium 8.8 mg/dL (8.4-10.2); Carbon Dioxide 24 mmol/L (22-30); Chloride 111 mmol/L (98-107); Glucose 88 mg/dL (74-99); Non-African American GFR(CKD) 85 (>60 ml/min/1.73 sqM); Sodium 139 mmol/L (137-145); Total Protein 5.9 g/dL (6.3-8.2)
[2023-07-21] MEDS: ASPIRIN 81 MG PO SCH (09:32)
--- NOTE | 2023-07-21 09:49 | P.DS ---
Providers Date of admission: 07/19/23 22:28 Expected date of discharge: 07/21/23 Attending physician: Lashaun Pelletier MD Consults: 07/19/23 22:26 Consult Physician Routine Consulting Provider: Blue Renae Consult Reason/Comments: Dysarthria. TIA versus stroke Do you want consulting provider notified?: Yes Primary care physician: [facility] Course: discharge diagnosis: TIA Dysarthria, paresthesias, and left-sided facial droop, TIA versus CVA Imaging: CT brain and CT angiogram head neck both revealed no acute abnormalities. Chest x-ray was unremarkable with EKG showing sinus rhythm at [address]/T wave changes noted as reviewed by me. Data Review: Laboratory evaluation was remarkable for troponin less than 0.012, BUN 25, creatinine 1.03, glucose 127, WBC count 5.8, hemoglobin 15.3, and platelet count 207. Plan: Cardiac monitoring Obtain echocardiogram Neurology consulted Neurochecks Continue with aspirin, Plavix, and statin Fall precautions PT and MANAGER ANDROID consults HPI: Patient is a 62-year-old male with history of CVA in 2019 with no residual deficits who presents to the emergency room with complaints of sudden onset of strokelike symptoms. The patient notes that he had gone to take a nap at around 4 PM when upon waking at around 7 he had developed slurring of his speech with left-sided facial droop and left sided paresthesias. The symptoms were also noticed by his . He he reports compliance with his aspirin and statin at home. Patient notes that his symptoms gradually improved after arrival at the emergency room and have now almost entirely resolved aside from mild slurring of speech. He denies experiencing visual disturbances, weakness, gait abnormalities. Does report that the paresthesias were largely in the left arm. Also reports a mild diffuse headache, rated at a 2 out of 10 at the time of interview denies experiencing chest discomfort, shortness of breath, fever, chills, cough. CT brain and CT angiogram head neck both revealed no acute abnormalities. Chest x-ray was unremarkable with EKG showing sinus rhythm at [address]/T wave changes noted as reviewed by me. Laboratory evaluation was remarkable for troponin less than 0.012, BUN 25, creatinine 1.03, glucose 127, WBC count 5.8, hemoglobin 15.3, and platelet count 207. ED documentation reviewed and case discussed with ED provider. Hospital course and treatment: Patient was admitted to the hospital with TIA symptoms including dysarthria and paresthesia with left facial droop symptoms spontaneously resolved. No focal weakness. Brain CT negative for acute findings, 2D echo unremarkable. Patient is already on aspirin and statin, Plavix was added. Neurology consulted. MRI pending if MRI is negative patient will be discharged home on aspirin statin and Plavix Patient Condition at Discharge: Good Plan - Discharge Summary Discharge Rx Participant: Yes New Discharge Prescriptions: New Clopidogrel [Plavix] 75 mg PO DAILY 30 Days tab Continue Aspirin 81 mg PO DAILY #30 chew Atorvastatin [Lipitor] 40 mg PO HS #30 tab Discharge Medication List Aspirin 81 mg PO DAILY #30 chew 12/19/18 [Rx] Atorvastatin [Lipitor] 40 mg PO HS #30 tab 12/19/18 [Rx] Clopidogrel [Plavix] 75 mg PO DAILY 30 Days tab 07/21/23 [Rx] Follow up Appointment(s)/Referral(s): Richard Glover DO [Primary Care Provider] - 1 Week Discharge Disposition: HOME SELF-CARE
[2023-07-21 12:08] VITALS: TEMP 97.4
--- NOTE | 2023-07-21 13:42 | P.PN ---
Subjective Progress Note Date: 07/21/23 I am following-up with patient and he continues to feel back to baseline. Denies any new neurological issues. Pending MRI Brain. Objective - Vital Signs Vital signs: Vital Signs Temp 97.4 F L 07/21/23 08:00 Pulse 70 07/21/23 08:00 Resp 18 07/21/23 08:00 BP 119/84 07/21/23 08:00 Pulse Ox 96 07/21/23 08:00 FiO2 Intake & Output 07/20/23 07/21/23 07/21/23 18:59 06:59 18:59 Intake Total 118 Balance 118 Weight 97.931 kg Intake: Oral 118 Other: Voiding Method Toilet Toilet # Voids 1 - Exam Some of the workup during this hospital visit consisted of: Initial serum glucose is 127. CBC with differential is unremarkable. Sodium, creatinine are normal. Lipid panel is triglyceride is 51, cholesterol is 142, LDL is 78 and HDL is 53 CT of the head is reported as no evidence of acute intracranial hemorrhage, midline shift or mass effect. No evidence of acute infarct by CT. Atrophy and chronic microvascular ischemic changes. Reviewed the CT and agree there is no acute or subacute intracranial process. CT angiography of the neck is reported as patent CT angiography. No significant atherosclerotic disease or stenosis involving the carotid or internal carotid artery in the neck. Cervical vertebral artery appears unremarkable. Partially seen fusiform AAA ascending aortic aneurysm measuring up to 4.[address] angiography of the head is reported as patent CT angiography of the head. 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 The more distal vessel is supplied by the left side. No intracranial large vessel occlusion, significant stenosis or sizable aneurysm detected in the limits of CT angiography. EKG is reported as sinus rhythm. Normal EKG 2D echo: Normal LV systolic function. Moderately dilated aorti root measuring 4.3cm. Negative bubble study. GENERAL: The patient is lying in bed and is not in acute distress. NEUROLOGICAL: Higher mental function: The patient is awake, alert, oriented to self, place and time. Patient is following commands. No aphasia and no neglect. Cranial nerves: The pupils are round, equal and reactive to light and accommodation. Visual gibson are full to confrontation throughout. Extraocular movement is intact no nystagmus is noted. Facial sensation is normal to touch throughout. The facial strength is normal throughout. Hearing is normal bilaterally to hand rub. Tongue is midline and moved [id number] without any difficulty. No dysarthria is noted. Shoulder shrug is normal bilaterally. Motor: The strength is 5 over 5 throughout. Normal tone and bulk. Cerebellum: Normal finger to nose heel to contreras bilaterally. Sensation: Sensation is normal to touch throughout. Reflexes (right/left): 2+ throughout. Plantars are downgoing bilaterally. - Labs CBC & Chem 7: 07/21/23 07:21 07/21/23 07:21 Labs: Abnormal Lab Results - Last 24 Hours (Table) 07/21/23 Range/Units 07:21 Chloride 111 H (98-107) mmol/L Total Protein 5.9 L (6.3-8.2) g/dL Assessment and Plan Assessment: This is a 62-year-old gentleman with history of stroke in 2019 without any residual deficit, positive cardiolipin antibody who presents because yesterday between 7 and 730 he had episode of slurred speech, left arm tingling nausea and mild headache over the right frontal temporal region. Symptoms resolved. Likely transient ischemic attack (presented with symptoms of dysarthria, left arm tingling. Per the ED he had facial weakness). History of stroke in 2019 without any residual deficit History of positive cardiolipin antibody Plan: Patient was given aspirin 325 once in the ED then resumed on his home dose of aspirin 81 mg. Patient was started on Plavix 75 mg daily. Patient to be on dual antiplatelets for 21 days and after 21 days, stop ASA but indefinitely be on Plavix but will defer the final medication modification to his outpatient neurologist. Patient is on Lipitor 40 mg nightly and that sufficient for secondary stroke prophylaxis MRI of the brain: pending. Continue neurochecks Cardiac monitoring PT OT and STATION ENGINEER are consulted Will defer the rest of the medical management to the primary team For DVT prophylaxis I started the patient on subcu heparin 5000 units every 12 hours Upon discharge, recommend the patient to follow-up with his neurologist, Dr. Chacon over [facility] within 1 to 2 weeks. The plan discussed with the patient. Time with Patient: Less than 30
--- NOTE | 2023-07-21 13:59 | MR ---
EXAMINATION TYPE: MR brain wo con DATE OF EXAM: 07/21/2023 1:55 PM CLINICAL INDICATION:Male, 62 years old with history of dysarthria; PHH, Dysarthria. COMPARISON: 12/15/2018. TECHNIQUE: Multi planar, multi sequence imaging was performed through the brain including: T1, T2, In version recovery, Diffusion weighted imaging, and gradient echo imaging. No gadolinium was given. FINDINGS: Mild cerebral atrophy with proportional dilation of ventricular system. Scattered foci of high T2 s ignal intensity are seen within the periventricular white matter. Midline structures show no abnormal ity. Diffusion-weighted imaging shows no evidence of restricted diffusion. The susceptibility weighte d images do not reveal any evidence for micro-hemorrhage. The bone marrow signal is within normal limits. Paranasal sinuses and mastoid air cells: No significant paranasal sinus disease. Visualized orbits: Orbital contents are intact. IMPRESSION: 1. No evidence of intracranial mass or acute/subacute infarct. 2. Nonspecific white matter changes, likely secondary to small vessel ischemic disease.
[2023-07-21 16:16] VITALS: BP 117/74; PULSE 83
== END 2023-07-21 17:29 | disposition home or self-care (01) | DRG 69 ==
LOC: EC 19:58 → 3SCARD 22:28
PROVIDERS: ADMIT Internal Medicine; ATTEND Internal Medicine
DX: G45.9 Transient cerebral ischemic attack, unspecified (principal); I71.21 Aneurysm of the ascending aorta, without rupture; R29.810 Facial weakness; R47.1 Dysarthria and anarthria; R47.81 Slurred speech; M17.0 Bilateral primary osteoarthritis of knee; Z79.82 Long term (current) use of aspirin; Z79.899 Other long term (current) drug therapy; Z86.73 Personal history of transient ischemic attack (TIA), and cerebral infarction without residual deficits
CPT/HCPCS: 36415; 70450; 70496; 70498; 70551; 71046; 80053; 80061; 82550; 84484; 85025; 85610; 85730; 93005; 93306; 96360; 96361; 96372; 99291

== ENCOUNTER → 2024-02-18 | Outpatient (CLI) | payer OTHER ==
[2024-02-18 12:46] LABS: HCT 46.2 % (39.6-50.0); HGB 15.5 g/dL (13.0-17.0); MCH 29.4 pg (27.0-32.0); MCHC 33.5 g/dL (32.0-37.0); MCV 87.5 FL (80.0-97.0); Mean Platelet Volume 10.4 FL (9.5-12.2); NRBC Per 100 WBC 0 X 10*3/uL (0.00-0.01); Platelet Count 230 X 10*3/uL (140-440); RBC 5.28 X 10*6/uL (4.40-5.60); RDW 12.6 % (11.5-14.5); WBC 6.23 X 10*3/uL (4.50-10.00)
[2024-02-18 13:04] LABS: ALT 23 U/L (10-49); AST 18 U/L (14-35); Albumin 4.5 g/dL (3.8-4.9); Albumin/Globulin Ratio 2.05 Ratio (1.60-3.17); Alkaline Phosphatase 106 U/L (41-126); BUN/Creat Ratio 21.45 Ratio (12.00-20.00); Blood Urea Nitrogen 23.6 mg/dL (9.0-27.0); Calcium 9.9 mg/dL (8.7-10.3); Carbon Dioxide 25.8 mmol/L (21.6-31.8); Chloride 108 mmol/L (96-109); Chol/HDL Ratio 2.13 Ratio; Globulin 2.2 g/dL (1.6-3.3); Glucose 103 mg/dL (70-110); LDL Cholesterol,Calculated 56.4 mg/dL (0.0-131.0); Potassium 4.6 mmol/L (3.5-5.5); Sodium 145 mmol/L (135-145); Total Bilirubin 0.5 mg/dL (0.3-1.2); Total Protein 6.7 g/dL (6.2-8.2); VLDL Calculation 10.54 mg/dL (5.00-40.00)
== END | disposition home or self-care (01) ==
LOC: LABWHC1 08:44
PROVIDERS: ATTEND Internal Medicine Cardiovascular Disease
DX: Z00.00 Encounter for general adult medical examination without abnormal findings (principal); Z12.5 Encounter for screening for malignant neoplasm of prostate; E78.2 Mixed hyperlipidemia
CPT/HCPCS: 36415; 80053; 80061; 84153; 84443; 85027